=== PATIENT | female | born 1950 | race Caucasian/White ===

== ENCOUNTER → 2019-11-28 11:35 | Outpatient (BNVA) | payer MEDICARE, OTHER, SELFPAY | PROVIDERS: Family Provider Nurse Practitioner Family; PCP Nurse Practitioner Family; Visit Provider Nurse Practitioner Family | DX: E11.9 Type 2 diabetes mellitus without complications (principal); Z79.4 Long term (current) use of insulin; I10 Essential (primary) hypertension; E78.5 Hyperlipidemia, unspecified; M54.5 Low back pain | CPT/HCPCS: 80053; 80061; 83036 ==

== ENCOUNTER → 2020-02-26 10:46 | Outpatient (BNVA) | payer MEDICARE, OTHER, SELFPAY | PROVIDERS: Family Provider Nurse Practitioner Family; PCP Nurse Practitioner Family; Visit Provider Nurse Practitioner Family | DX: Z79.4 Long term (current) use of insulin (principal); E11.9 Type 2 diabetes mellitus without complications; I10 Essential (primary) hypertension; Z79.899 Other long term (current) drug therapy; J32.9 Chronic sinusitis, unspecified | CPT/HCPCS: 80053; 80061; 82043; 83036 ==

== ENCOUNTER 2020-04-24 08:40 | Outpatient (CLI) | payer MEDICARE, OTHER, SELFPAY ==
--- NOTE | 2020-04-24 08:45 | MR_ITS ---
WS: [id number] MRI LUMBAR SPINE NONCONTRAST TECHNIQUE: Sagittal T1, T2 and STIR imaging. Axial T1 and T2 imaging. CLINICAL INFORMATION: S39.012A Strain of muscle, fascia and tendon of lower berny... COMPARISON: None. FINDINGS: Mild lumbar curve. No acute compression. Disc bulging worse L4-5 with endplate degenerative changes. L1-L2: Normal. L2-L3: No significant disc bulging. Mild facet arthropathy. Spinal canal and foramen are patent. L3-L4: Mild disc bulging with slight effacement of ventral thecal sac. Narrowing of the left subartic ular recess. Small left foraminal protrusion with mild left foraminal narrowing. Mild right foraminal narrowing. Mild to moderate facet arthropathy. L4-L5: Broad-based central disc osteophyte protrusion with impingement subarticular recess and jennifer sing L5 nerve roots bilaterally. Moderate central canal stenosis. Moderate facet arthropathy with lig ament flavum hypertrophy. Moderate right and mild left foraminal narrowing. L5-S1: Disc osteophyte complex with endplate ridging. Slight effacement of the ventral thecal sac. Fo ramen are patent. Mild to moderate facet arthropathy. Visualized pelvic bony structures: Normal. Paravertebral soft tissues: Normal. MR/MR lumbar spine wo con* [id number] IMPRESSION: 1. Mild lumbar curve. No acute compression. 2. Disc osteophyte complex L4-L5 with central disc protrusion and moderate yana tral canal stenosis. Impingement traversing L5 nerve roots bilaterally. 3. Moderate right L4-5 foraminal narrowing. 4. Small left foraminal protrusion L3-4 with mild left foraminal narrowing. 5. Mild to moderate facet arthropathy L3-L5.
== END 2020-04-24 08:41 | disposition home or self-care (01) ==
LOC: RADSHAW 08:42
PROVIDERS: PCP Nurse Practitioner Family; Visit Provider Nurse Practitioner Family
DX: S39.012A Strain of muscle, fascia and tendon of lower back, initial encounter (principal); X58.XXXA Exposure to other specified factors, initial encounter; M25.78 Osteophyte, vertebrae; M51.26 Other intervertebral disc displacement, lumbar region; M47.816 Spondylosis without myelopathy or radiculopathy, lumbar region
CPT/HCPCS: 72148

== ENCOUNTER 2020-05-10 08:52 | Outpatient (CLI) | payer MEDICARE, OTHER, SELFPAY ==
--- NOTE | 2020-05-10 09:30 | MM_ITS ---
WS: [id number] BILATERAL SCREENING DIGITAL MAMMOGRAM WITH CAD HISTORY: screen breast COMPARISON: 10/26/2018 and 09/28/2017 Bilateral CC and MLO views submitted. Computer aided detection analyzed. Breast composition: There are scattered areas of fibroglandular density. No suspicious masses, microc alcifications or architectural distortion. Numerous coarse benign round calcifications scattered thro ughout the RIGHT breast. Similar to prior studies. MM/[place] [id number] IMPRESSION: BI-RADS: 2-Benign FOLLOW UP: 1 Year Follow-up
== END 2020-05-10 08:53 | disposition home or self-care (01) ==
LOC: RADSHAW 08:55
PROVIDERS: PCP Nurse Practitioner Family; Visit Provider Nurse Practitioner Family
DX: Z12.31 Encounter for screening mammogram for malignant neoplasm of breast (principal)
CPT/HCPCS: 77067

== ENCOUNTER → 2020-06-24 10:08 | Outpatient (BNVA) | payer MEDICARE, OTHER, SELFPAY | PROVIDERS: PCP Nurse Practitioner Family; Visit Provider Nurse Practitioner Family | DX: L03.90 Cellulitis, unspecified (principal) | CPT/HCPCS: 87070 ==

== ENCOUNTER → 2020-07-01 10:58 | Outpatient (BNVA) | payer MEDICARE, OTHER, SELFPAY | PROVIDERS: PCP Nurse Practitioner Family; Visit Provider Nurse Practitioner Family | DX: E11.9 Type 2 diabetes mellitus without complications (principal); Z79.4 Long term (current) use of insulin; I10 Essential (primary) hypertension; E78.5 Hyperlipidemia, unspecified; L03.90 Cellulitis, unspecified | CPT/HCPCS: 80053; 80061; 83036 ==

== ENCOUNTER → 2020-08-05 15:44 | Outpatient (BNVA) | payer MEDICARE, OTHER, SELFPAY | PROVIDERS: PCP Nurse Practitioner Family; Visit Provider Nurse Practitioner Family | DX: R05 Cough (principal) | CPT/HCPCS: 87635 ==

== ENCOUNTER → 2020-09-16 08:29 | Outpatient (BNVA) | payer MEDICARE, OTHER, SELFPAY | PROVIDERS: PCP Nurse Practitioner Family; Visit Provider Nurse Practitioner Family | DX: R10.2 Pelvic and perineal pain (principal); E11.9 Type 2 diabetes mellitus without complications; Z79.4 Long term (current) use of insulin; I10 Essential (primary) hypertension; J32.9 Chronic sinusitis, unspecified; E78.5 Hyperlipidemia, unspecified | CPT/HCPCS: 80061; 81000; 83036 ==

== ENCOUNTER 2020-10-21 06:20 | Day surgery (SDC) | payer MEDICARE, OTHER, SELFPAY ==
[2020-10-17 12:38] VITALS: BMI 27.1
[2020-10-21 06:50] VITALS: BP 181/80; PULSE 67; RESP 16; TEMP 36.6; O2SAT 100
--- NOTE | 2020-10-21 06:52 | W.PM.OPSUD ---
Surgery/Procedure H&P Update DATE OF PROCEDURE: October 21, 2020 DATE H&P PERFORMED: 10/09/20 H&P UPDATE INFORMATION: I have reviewed H&P completed within last 30 days, I have examined patient prior to procedure and No changes to prior documentation PREOP DIAGNOSIS: Epigastric pain PRIMARY INDICATION FOR PROCEDURE: The same PLANNED PROCEDURE: Operation Date: 10/21/20 07:30 Proposed Procedures p EGD 81008 K21.9(Not Applicable) - Tate Stockton MD
[2020-10-21 07:05] LABS: Glucose Point of Care 125 mg/dL (70-110)
[2020-10-21] MEDS: sodium chloride 0.9% 1,000 ML 30 ML IV (07:05)
--- NOTE | 2020-10-21 07:22 | ANES.PREANE2 ---
Pre-Anesthetic Assessment Pre-Anesthetic Assessment: Height/Weight: Height 1.47 m Weight 58.967 kg Temp Pulse Resp BP Pulse Ox 97.8 F 67 16 181/80 100 10/21/20 06:50 10/21/20 06:50 10/21/20 06:50 10/21/20 06:50 10/21/20 06:50 Preop Diagnosis: Epigastric pain Proposed Procedure: Operation Date: 10/21/20 07:30 Proposed Procedures p EGD 56182 K21.9(Not Applicable) - Tate Stockton MD Was Beta Onur taken within 24 hours: Yes Was Clonidine taken within 24 hours: N/A Last intake: Intake Last Liquid Date 10/20/20 Last Liquid Time 22:00 Last Solid Date 10/20/20 Last Solid Time 19:00 Social: Social History: No alcohol and No tobacco Exam: Pre-Anes Outpt Exam: alert, oriented x 3, clear to auscultation bilaterally and regular rate & rhythm Airway: Submandibular: WNL Cervical ROM: WNL MP: 2 Dentition: Full History/ROS: No significant history except as noted and No significant complaints Pulmonary: Pulmonary: None reported CV/HEM: CV/HEM: CAD and HTN : : None reported Hepatic: Hepatic: None reported GI: GI: GERD Metabolic: Metabolic: DM Musc/skel: Musc/skel: None reported Neuropsych: Neuropsych: None reported Anesthetic Plan: ASA status: 3 Anesthesia: MAC Risk of > 500 ml blood loss (7ml/kg in children): No Meds/Allergies Current Medications: Current Medications Generic Name Dose Route Start Last Admin Trade Name Freq PRN Reason Stop Dose Admin Sodium Chloride 1,000 mls @ 30 ml s/hr 10/21/20 06:30 10/21/20 07:05 Sodium Chloride 0.9% IV 30 mls/hr .Q24H STACI Administration PFSH Anesthesia PFSH: Medical History CAD (coronary artery disease) HTN (hypertension), benign Hyperlipidemia LDL goal <100 Type 2 diabetes mellitus with insulin therapy Type 2 diabetes mellitus with insulin therapy Surgical History H/O: hysterectomy History of appendectomy Family History Father CAD (coronary artery disease) Mother CAD (coronary artery disease) Social History Smoking and tobacco status: never smoked Data Anesthesia Other Labs: Laboratory Results - last 48 hr 10/21/20 07:03 POC Glucose 125 H Cardiac Studies: No Data to Display
[2020-10-21 07:33] VITALS: BP 128/63; PULSE 66; RESP 16; TEMP 36.2; O2SAT 94
[2020-10-21 07:48] VITALS: BP 118/63; PULSE 66; RESP 18; O2SAT 100
--- NOTE | 2020-10-21 17:43 | ANE.PACU2 ---
Inpatient post-anesthesia follow up: Airway intact: Yes Vital signs: Temperature 97.2 F Pulse Rate 66 Respiratory Rate 18 Blood Pressure 118/63 Pulse Oximetry 100 Oxygen Delivery Me thod Room Air Oxygen Flow Rate 2 Fraction of Inspir ed Oxygen Hydration adequate: Yes Nausea and vomiting: No Pain level: 1 Mental status: Baseline
== END 2020-10-21 08:08 | disposition home or self-care (01) ==
PROVIDERS: PCP Nurse Practitioner Family; Visit Provider Surgery
PROC: 0DJ08ZZ Inspection of Upper Intestinal Tract, Via Natural or Artificial Opening Endoscopic (ICD-10-PCS; CPT 43235; principal; 2020-10-21 07:30)
DX: R10.13 Epigastric pain (principal); K21.9 Gastro-esophageal reflux disease without esophagitis; K44.9 Diaphragmatic hernia without obstruction or gangrene; K29.70 Gastritis, unspecified, without bleeding; I25.10 Atherosclerotic heart disease of native coronary artery without angina pectoris; I10 Essential (primary) hypertension; E11.9 Type 2 diabetes mellitus without complications; E78.5 Hyperlipidemia, unspecified; Z79.82 Long term (current) use of aspirin; Z79.84 Long term (current) use of oral hypoglycemic drugs
CPT/HCPCS: 36416; 43239; 82962; 88305; 96360; J7030

== ENCOUNTER 2020-10-28 08:56 | Outpatient (CLI) | payer MEDICARE, OTHER, SELFPAY ==
--- NOTE | 2020-10-28 09:30 | FL_ITS ---
WS: [id number] MODIFIED BARIUM SWALLOW HISTORY: R13.10 - Dysphagia, unspecified FLUOROSCOPY TIME: 2.5 minutes. Modified barium swallow was performed by the speech pathologist. Fluoroscopy was provided with the pa tient in a lateral projection. Multiple food consistencies were provided. Patient swallowed all food consistencies without difficulty. No aspiration or laryngeal penetration. No residual barium after swallowing. Barium tablet swallowed normally. FL/FL barium swallow modifd [id number] IMPRESSION: Normal modified swallowing examination. Please see speech therapist report also for recommendations.
== END 2020-10-28 08:57 | disposition home or self-care (01) ==
PROVIDERS: PCP Nurse Practitioner Family; Visit Provider Surgery
DX: R13.10 Dysphagia, unspecified (principal)
CPT/HCPCS: 74230; 92611

== ENCOUNTER → 2021-01-10 09:13 | Outpatient (BNVA) | payer MEDICARE, SELFPAY | PROVIDERS: PCP Nurse Practitioner Family; Visit Provider Nurse Practitioner Family | DX: E11.9 Type 2 diabetes mellitus without complications (principal); Z79.4 Long term (current) use of insulin | CPT/HCPCS: 80053; 80061; 83036; 85025 ==

== ENCOUNTER → 2021-04-07 08:53 | Outpatient (BNVA) | payer MEDICARE, SELFPAY | PROVIDERS: PCP Nurse Practitioner Family; Visit Provider Nurse Practitioner Family | DX: R30.0 Dysuria (principal) | CPT/HCPCS: 81000; 87086 ==

== ENCOUNTER → 2021-04-17 08:50 | Outpatient (BNVA) | payer MEDICARE, SELFPAY | PROVIDERS: PCP Nurse Practitioner Family; Visit Provider Nurse Practitioner Family | DX: E78.5 Hyperlipidemia, unspecified (principal); E11.9 Type 2 diabetes mellitus without complications; I10 Essential (primary) hypertension; Z79.4 Long term (current) use of insulin | CPT/HCPCS: 80053; 80061; 83036 ==

== ENCOUNTER → 2021-05-09 00:01 | Outpatient (BNVA) | payer MEDICARE, SELFPAY | PROVIDERS: PCP Nurse Practitioner Family; Visit Provider Nurse Practitioner Family | DX: R30.9 Painful micturition, unspecified (principal) | CPT/HCPCS: 81000; 87077; 87086; 87184 ==

== ENCOUNTER → 2021-05-19 09:22 | Outpatient (BNVA) | payer MEDICARE, SELFPAY | PROVIDERS: PCP Nurse Practitioner Family; Visit Provider Nurse Practitioner Family | DX: R39.9 Unspecified symptoms and signs involving the genitourinary system (principal); N39.0 Urinary tract infection, site not specified | CPT/HCPCS: 81000; 87086 ==

== ENCOUNTER → 2021-08-28 09:40 | Outpatient (BNVA) | payer MEDICARE, OTHER, SELFPAY | PROVIDERS: PCP Nurse Practitioner Family; Visit Provider Nurse Practitioner Family | DX: E78.5 Hyperlipidemia, unspecified (principal); E11.9 Type 2 diabetes mellitus without complications; I10 Essential (primary) hypertension; Z79.4 Long term (current) use of insulin; L72.3 Sebaceous cyst | CPT/HCPCS: 80053; 80061; 83036 ==

== ENCOUNTER 2021-10-01 10:22 | Outpatient (CLI) | payer MEDICARE, OTHER, SELFPAY ==
--- NOTE | 2021-10-01 10:30 | XRR_ITS ---
PROCEDURE INFORMATION: Exam: XR Left Ankle Exam date and time: 10/01/2021 10:30 AM Age: 71 years old Clinical indication: Injury or trauma; Fall; Sprain or strain; Left; Injury date: 2 weeks ago; Injury details: Lt ankle pain medial side, twisted ankle slipped on ice felt pop 2 weeksago; Additional info: S99.912a - unspecified injury of left ankle, initial enco. . . TECHNIQUE: Imaging protocol: XR Left ankle. Views: 3 or more views. COMPARISON: No relevant prior studies available. FINDINGS: Bones/joints: No fracture. Moderate to large calcaneal plantar spur. Soft tissues: Anterior as well as lateral soft tissue swelling. Vascular calcifications. XR/XR ankle LT min 3V* [id number] IMPRESSION: Soft tissue swelling.
== END 2021-10-01 10:23 | disposition home or self-care (01) ==
LOC: RAD 10:27
PROVIDERS: PCP Nurse Practitioner Family; Visit Provider Nurse Practitioner Family
DX: S99.912A Unspecified injury of left ankle, initial encounter (principal); W00.0XXA Fall on same level due to ice and snow, initial encounter; M79.89 Other specified soft tissue disorders
CPT/HCPCS: 73610

== ENCOUNTER → 2021-11-11 09:34 | Outpatient (BNVA) | payer MEDICARE, OTHER, SELFPAY | PROVIDERS: PCP Nurse Practitioner Family; Visit Provider Nurse Practitioner Family | DX: N28.9 Disorder of kidney and ureter, unspecified (principal); M67.472 Ganglion, left ankle and foot | CPT/HCPCS: 80048 ==

== ENCOUNTER → 2021-12-24 09:58 | Outpatient (BNVA) | payer MEDICARE, OTHER, SELFPAY | PROVIDERS: PCP Nurse Practitioner Family; Referring Provider Nurse Practitioner Family; Visit Provider Podiatrist Foot & Ankle Surgery | DX: M72.2 Plantar fascial fibromatosis (principal); M79.672 Pain in left foot; M25.572 Pain in left ankle and joints of left foot; M25.472 Effusion, left ankle; M76.72 Peroneal tendinitis, left leg | CPT/HCPCS: 99204 ==

== ENCOUNTER → 2022-01-05 09:34 | Outpatient (BNVA) | payer MEDICARE, OTHER, SELFPAY | PROVIDERS: PCP Nurse Practitioner Family; Referring Provider Nurse Practitioner Family; Visit Provider Specialist | DX: G56.02 Carpal tunnel syndrome, left upper limb (principal) | CPT/HCPCS: 95908; 95910 ==

== ENCOUNTER → 2022-02-04 10:26 | Outpatient (BNVA) | payer MEDICARE, OTHER, SELFPAY | PROVIDERS: PCP Nurse Practitioner Family; Visit Provider Podiatrist Foot & Ankle Surgery | DX: M25.572 Pain in left ankle and joints of left foot (principal); M25.472 Effusion, left ankle; M72.2 Plantar fascial fibromatosis; M76.72 Peroneal tendinitis, left leg; M79.672 Pain in left foot | CPT/HCPCS: 99213 ==

== ENCOUNTER → 2022-02-09 15:07 | Outpatient (BNVA) | payer MEDICARE, OTHER, SELFPAY | PROVIDERS: PCP Nurse Practitioner Family; Visit Provider Nurse Practitioner Family | DX: R30.9 Painful micturition, unspecified (principal); N39.0 Urinary tract infection, site not specified | CPT/HCPCS: 81000; 87077; 87086; 87184 ==

== ENCOUNTER → 2022-02-16 09:27 | Outpatient (BNVA) | payer MEDICARE, OTHER, SELFPAY | PROVIDERS: PCP Nurse Practitioner Family; Visit Provider Nurse Practitioner Family | DX: I10 Essential (primary) hypertension (principal); E11.9 Type 2 diabetes mellitus without complications; Z79.4 Long term (current) use of insulin; N39.0 Urinary tract infection, site not specified; E78.5 Hyperlipidemia, unspecified | CPT/HCPCS: 80053; 80061; 81000; 82043; 83036 ==

== ENCOUNTER → 2022-02-27 08:54 | Outpatient (BNVA) | payer MEDICARE, OTHER, SELFPAY | PROVIDERS: PCP Nurse Practitioner Family; Visit Provider Nurse Practitioner Family | DX: R35.0 Frequency of micturition (principal); R31.9 Hematuria, unspecified; N39.0 Urinary tract infection, site not specified | CPT/HCPCS: 81000; 87077; 87086; 87184 ==

== ENCOUNTER → 2022-03-10 15:54 | Outpatient (BNVA) | payer MEDICARE, OTHER, SELFPAY | PROVIDERS: PCP Nurse Practitioner Family; Visit Provider Nurse Practitioner Family | DX: N39.0 Urinary tract infection, site not specified (principal) | CPT/HCPCS: 87086 ==

== ENCOUNTER → 2022-03-12 07:54 | Outpatient (BNVA) | payer MEDICARE, OTHER, SELFPAY | PROVIDERS: PCP Nurse Practitioner Family; Referring Provider Nurse Practitioner Family; Visit Provider Specialist | DX: M54.12 Radiculopathy, cervical region (principal); G56.03 Carpal tunnel syndrome, bilateral upper limbs | CPT/HCPCS: 95886; 95908; 99202 ==

== ENCOUNTER → 2022-03-18 12:06 | Outpatient (BNVA) | payer MEDICARE, OTHER, SELFPAY | PROVIDERS: PCP Nurse Practitioner Family; Visit Provider Nurse Practitioner Family | DX: R30.0 Dysuria (principal) | CPT/HCPCS: 81000 ==

== ENCOUNTER → 2022-04-09 14:23 | Outpatient (BNVA) | payer MEDICARE, OTHER, SELFPAY | PROVIDERS: PCP Nurse Practitioner Family; Visit Provider Internal Medicine Cardiovascular Disease | DX: R06.02 Shortness of breath (principal); I10 Essential (primary) hypertension; I25.10 Atherosclerotic heart disease of native coronary artery without angina pectoris; E78.5 Hyperlipidemia, unspecified; E11.9 Type 2 diabetes mellitus without complications; Z79.84 Long term (current) use of oral hypoglycemic drugs; Z79.4 Long term (current) use of insulin; K21.9 Gastro-esophageal reflux disease without esophagitis | CPT/HCPCS: 99214 ==

== ENCOUNTER 2022-04-14 09:57 | Outpatient (CLI) | payer MEDICARE, OTHER, SELFPAY ==
--- NOTE | 2022-04-14 10:15 | MR_ITS ---
WS: [id number] MRI CERVICAL SPINE NONCONTRAST TECHNIQUE: Sagittal T1, T2 and STIR imaging. Axial T2, gradient, and fiesta imaging. Images degraded by motion artifact. Patient claustrophobic. CLINICAL INFORMATION: M54.12 - Radiculopathy, cervical region COMPARISON: None. FINDINGS: Images degraded by motion artifact. Straightening of the normal cervical lordosis. Mild cervical curve. Slight anterolisthesis C6 on C7 m easuring 4 mm. Slight retrolisthesis C4 on C5. Disc space narrowing worse at C4-C5 C5-C6 and C6-C7. C2-C3: Mild disc osteophytic ridging. Mild LEFT bony foraminal narrowing. Mild facet arthropathy. Spi nal canal is patent. C3-C4: Mild disc osteophytic ridging. Mild LEFT and no significant RIGHT foraminal narrowing. Mild fa cet arthropathy. Spinal canal is patent. C4-C5: Disc osteophyte complex with endplate ridging. Mild central canal stenosis. Slight retrolisthe sis. Moderate RIGHT greater than LEFT bony foraminal narrowing. Mild central arthropathy. C5-C6: Disc osteophyte complex with endplate ridging. Shallow central protrusion. Mild central canal stenosis. Moderate LEFT and mild RIGHT bony foraminal narrowing. Moderate facet arthropathy. C6-C7: Grade 1 anterolisthesis. Central disc bulging with moderate central canal stenosis. Indentatio n on cervical cord. Severe LEFT and mild RIGHT bony foraminal narrowing. Mild facet arthropathy. C7-T1: No significant disc bulging. Spinal canal and foramen are patent. Visualized brain stem structures: Normal. Prevertebral soft tissues: Normal. MR/MR cervical spin wo con* [id number] IMPRESSION: Images degraded by motion artifact 1. Moderate central canal stenosis C6-C7 with indentation on cervical cord due to grade 1 anterolisthesis in combination with disc bulging. 2. Mild central canal stenosis C4-C5. 3. Severe LEFT bony foraminal narrowing LEFT C6-C7. 4. Moderate facet arthropathy C4-C6. 5. Mild to moderate bony foraminal narrowing worse at RIGHT C4-C5 and LEFT C5- C6
== END 2022-04-14 09:58 | disposition home or self-care (01) ==
LOC: RAD 09:58
PROVIDERS: PCP Nurse Practitioner Family; Visit Provider Specialist
DX: M54.12 Radiculopathy, cervical region (principal); M48.02 Spinal stenosis, cervical region; M47.812 Spondylosis without myelopathy or radiculopathy, cervical region
CPT/HCPCS: 72141

== ENCOUNTER → 2022-05-05 12:58 | Outpatient (BNVA) | payer MEDICARE, OTHER, SELFPAY | PROVIDERS: PCP Nurse Practitioner Family; Referring Provider Specialist; Visit Provider Physician Assistant | DX: M54.12 Radiculopathy, cervical region (principal); M43.12 Spondylolisthesis, cervical region | CPT/HCPCS: 72050; 99204; 99205 ==

== ENCOUNTER → 2022-05-11 11:23 | Outpatient (BNVA) | payer MEDICARE, OTHER, SELFPAY | PROVIDERS: PCP Nurse Practitioner Family; Visit Provider Nurse Practitioner Family | DX: R39.9 Unspecified symptoms and signs involving the genitourinary system (principal); R31.9 Hematuria, unspecified; N39.0 Urinary tract infection, site not specified | CPT/HCPCS: 81000; 87077; 87086; 87184 ==

== ENCOUNTER 2022-05-18 14:24 | Outpatient (CLI) | payer MEDICARE, OTHER, SELFPAY ==
--- NOTE | 2022-05-18 15:15 | MR_ITS ---
WS: [id number] MRI LUMBAR SPINE NONCONTRAST HISTORY: Low back pain. Tingling and weakness. COMPARISON: 04/24/2020 TECHNIQUE: Sagittal and axial multisequence imaging is submitted. Advanced degenerative spondylitic changes of the cervical, thoracic and lumbar spines with curvature. Small amount of reactive marrow edema and fatty replacement on the endplates of L4 and L5. Severe di sc space narrowing at L4-5. No acute fractures. Posterior alignment is normal. Disc spaces are narrowed and desiccated, most significant at L4-5. Conus terminates normally at L1-2 disc level. T11-12: Mild diffuse disc bulging. Mild LEFT foraminal narrowing. L1-L2: No stenosis. L2-L3: Mild bilateral facet joint arthritis. No significant stenosis. L3-L4: Marked annular disc bulging with facet and ligamentum flavum arthritis. Disc bulge is asymmetr ic to the LEFT but the small disc protrusion previously described is not as apparent. Mild encroachme nt into the thecal sac and subarticular recesses. Mild bilateral foraminal stenosis due to disc disea se. L4-L5: Marked annular disc bulging and osteophytic ridging. Ligamentum flavum and advanced facet join t arthritis. Broad-based central disc protrusion and osteophyte encroachment is not quite as signific ant as on the prior study. There is still moderate central with bilateral subarticular recess and for aminal stenosis. Slightly less stenosis in the LEFT foramen as before. L5-S1: Mild annular disc bulging and osteophytic ridging. Very small central disc protrusion. Mild fa cet arthritis and fluid in the facet joints. Paravertebral soft tissues are negative. MR/MR lumbar spine wo con* [id number] IMPRESSION: 1. Continued moderate central, bilateral subarticular recess stenosis and fora james stenosis at L4-5. Slightly greater foraminal stenosis on the RIGHT. Simil ar in appearance to the prior study with slightly less central effacement of CS F. 2. Mild central, subarticular recess and foraminal stenosis at L3-4. Previousl y described small LEFT foraminal disc protrusion is not as apparent as on the p rior study. There is still foraminal narrowing. 3. Mild to moderate facet joint arthritis most significant from L3-4 through L 5-S1.
== END 2022-05-18 14:25 | disposition home or self-care (01) ==
LOC: RAD 14:25
PROVIDERS: PCP Nurse Practitioner Family; Visit Provider Nurse Practitioner Family
DX: M51.36 Other intervertebral disc degeneration, lumbar region (principal); M48.061 Spinal stenosis, lumbar region without neurogenic claudication; M47.816 Spondylosis without myelopathy or radiculopathy, lumbar region; N28.9 Disorder of kidney and ureter, unspecified; N39.0 Urinary tract infection, site not specified
CPT/HCPCS: 72148; 87086

== ENCOUNTER 2022-05-19 11:01 | Outpatient (CLI) | payer MEDICARE, OTHER, SELFPAY | END 2022-05-19 11:02 | disposition home or self-care (01) | LOC: RT 05-27 11:07 | PROVIDERS: PCP Nurse Practitioner Family; Visit Provider Orthopaedic Surgery | DX: Z01.89 Encounter for other specified special examinations (principal); R94.31 Abnormal electrocardiogram [ECG] [EKG] | CPT/HCPCS: 93005 ==

== ENCOUNTER → 2022-05-20 09:05 | Outpatient (BNVA) | payer MEDICARE, OTHER, SELFPAY | PROVIDERS: PCP Nurse Practitioner Family; Visit Provider Nurse Practitioner Family | DX: E11.9 Type 2 diabetes mellitus without complications (principal); Z79.4 Long term (current) use of insulin; I10 Essential (primary) hypertension; M51.36 Other intervertebral disc degeneration, lumbar region; M48.02 Spinal stenosis, cervical region | CPT/HCPCS: 80061; 83036 ==

== ENCOUNTER 2022-05-22 06:30 | Outpatient (CLI) | payer MEDICARE, OTHER, SELFPAY ==
--- NOTE | 2022-05-22 | ECG_ITS ---
[facility] Test Date: 2022-05-22 Pat Name: Jaylene Ly Department: Room: Gender: Female Pre Assembly Wirer: : 1950 Requested By: Gladys Corona Order Number: [id number] Sussy MD: Gladys Corona M.D. Interpretive Statements NAME OF STUDY: LEXISCAN SESTAMIBI STRESS TEST INDICATION: Exertional shortness of breath PROCEDURE: At the baseline, the blood pressure was 188/101 mm Hg with a heart rate of 88 bpm. The electrocardiogram showed sinus rhythm, normal axis.ST depression and T wave inversion in lead I and aVL. The patient exercised for a little over 3 minutes on a standard Eric protocol and did not reach target HR. The Lexiscan was infused over a period of 20 seconds. A total of 0.4 milligrams of Lexiscan was infused. The stress phase was continued for a total of 5 minutes. Heart rate at the end of the stress phase was 74 bpm with a blood pressure of 108/62 mm Hg. The EKG at the peak exercise revealed 1-1 and 1/2 mm horizontal to upsloping ST depresion in infero-lateral leads. Lexiscan infusion revealed 1/[address] depression and T wave changes in lateral leads. Sestamibi was injected 20 seconds after the Lexiscan infusion. Blood pressure at the end of the recovery phase was 117/56 mm Hg with a heart rate of 90 beats per minute. CONCLUSION: 1. Positive EKG response to submaximal stress and equivocal EKG changes with the LexiScan infusion. 2. No LexiScan induced chest pain or cardiac arrhythmia. 3. Normal blood pressure and heart rate response. 4. Sestamibi/sestamibi perfusion scan pending; see separate report. Electronically Signed On 06-01-2022 20:36:00 GEOTECHNICIAN by Gladys Corona M.D. [id number]
[2022-05-22 07:04] VITALS: BMI 29.2
--- NOTE | 2022-05-22 07:17 | NMCV_ITS ---
[facility] perf SPECT r/s* [id number] Jaylene Ly Age: 72 Gender: F : 1950 Exam Date: 05/22/2022 07:59 Ordering Phys: Gladys Corona MD ([email or web address]) Technologist: URMILA Smith Exam Location: [facility] Indications: CHEST PAIN STRESS TEST Please see separate stress test report in [facility] for full findings IMAGE PROTOCOL Rest/Stress 1 Lexiscan Day Radiopharmaceutical Dose (mCi) Administration Site Administered by Rest: Tc-99m 10.8 IV URMILA King Sestamibi Stress:Tc-99m 32.9 IV URMILA Kign Sestamibi Rest: 22-May-2022 60 Discovery 630 Stress: 22-May-2022 30 Discovery 630 0.4mg Lexiscan. Images obtained in supine and prone position. SPECT RESULTS Technical Quality: Excellent Raw Data Analysis: Normal Image Corrections: No attenuation or motion correction applied Summed Stress Score: 8 Summed Rest Score: 3 Summed Difference Score: 5 PERFUSION FINDINGS Small sized reversible perfusion abnormality of basal to mid inferolateral lawrence with reversibiity noted in inferolateral lawrence on stress images. FUNCTIONAL RESULTS (calculated via Gated SPECT) Stress Image LV EF (%): 86 Stress EDV (mL):66 TID: 0.85 Stress ESV (mL):9 FUNCTIONAL FINDINGS: The left ventricle is normal in size. Transient Ischemia Dilatation of 0.85. The left ventricular ejection fraction is normal with a value of 86%. There is hyperdynamic left ventricular wall thickening. IMPRESSIONS 1. Small sized partially reversible perfusion abnormality of basal to mid inferolateral and apical lateral lawrence. 2. This is suggestive of old myocardial infarction with mild jie-infarct ischemia. 3. Overall left ventricular systolic function is normal without regional wall motion abnormalities, LVEF=86%. 4. EKG portion of the study will be reported separately. Gladys Corona MD (Electronically Signed) Final Date: 22 May 2022 15:54 S
[2022-05-22] MEDS: ondansetron 2 mg/ML SDV 2 mL 4 MG IVP (09:10)
[2022-05-22] MEDS: regadenoson 0.4 Mg/5 ml Syringe IVP (09:10)
[2022-05-22 09:23] VITALS: BP 117/56; PULSE 89
--- NOTE | 2022-05-22 09:24 | PC.NURSE ---
pt not able to complete exercise mibi. dr shrestha in dept and looked at ekg. asked that we proceed with shirin and run both test concurrently. lexiscan injected at the 21 min exercise time. pt then ran through time and recovered.
== END 2022-05-22 06:31 | disposition home or self-care (01) ==
LOC: CDL 06:33
PROVIDERS: PCP Nurse Practitioner Family; Visit Provider Internal Medicine Cardiovascular Disease
DX: R07.9 Chest pain, unspecified (principal); R93.1 Abnormal findings on diagnostic imaging of heart and coronary circulation
CPT/HCPCS: 78452; 93017; A9500; J2405; J2785

== ENCOUNTER 2022-05-25 14:24 | Inpatient (IN) | payer MEDICARE, OTHER, SELFPAY ==
[2022-05-19 09:04] VITALS: BMI 29.2
--- NOTE | 2022-05-19 09:19 | ECG_ITS ---
[facility] Test Date: 2022-05-19 Pat Name: Jaylene Ly Department: Room: Gender: Female Agriculture Technician: : 1950 Requested By: Niurka Chandler Order Number: [id number] Sussy MD: Cristo Mcneil M.D. Measurements Intervals Gaylord Rate: 60 P: 56 MO: 185 QRS: 9 QRSD: 89 T: 109 QT: 437 QTc: 439 Interpretive Statements SINUS RHYTHM ST DEVIATION AND MODERATE T-WAVE ABNORMALITY, CONSIDER LATERAL ISCHEMIA [-0.1+ mV T-WAVE IN I/aVL/V5/V6] No previous ECG available for comparison Electronically Signed On 05-19-2022 21:53:09 CDT by Cristo Mcneil M.D. [id number]
[2022-05-19 09:35] LABS: Basophils % 0.3 %; Eosinophils # 0.1 10^3/uL (0.0-0.8); Eosinophils % 1.3 %; Hematocrit 37.1 % (37.0-47.0); Hemoglobin 11.6 g/dL (11.5-15.3); Lymphocytes # 1.8 10^3/uL (0.8-4.8); Lymphocytes % 18.9 %; Mean Corpuscular HGB Conc 31.3 g/dL (30.0-36.0); Mean Corpuscular Volume 83.2 fl (81-99); Mean Platelet Volume 10.3 fL (7.4-10.4); Monocytes # 0.7 10^3/uL (0.2-0.9); Monocytes % 6.8 %; Neutrophils # 6.87 10^3/uL (1.8-7.7); Neutrophils % 72.4 %; Nucleated Red Blood Cells % 0 %; Platelet Count 319 10^3/cmm (130-400); Red Blood Count 4.46 10^6/uL (4.1-5.3); Red Cell Distribution Width 15.4 % (12.1-15.1); White Blood Count 9.5 10^3/uL (4.0-10.0)
--- NOTE | 2022-05-19 09:54 | PM.MISC ---
Miscellaneous Note Note: Patient presented for pre-op for surgery on May 25. Review of chart (Dr. Corona 04/09) indicates patient is to have a stress test, but she hasn't scheduled the appointment yet. Would require stress test to be completed and interpreted before proceeding with elective surgery. Patient informed.
--- NOTE | 2022-05-23 07:42 | PM.MISC ---
Miscellaneous Note Note: Spoke with Dr. Corona regarding unread stress test from 05/22. States patient is good to proceed with surgery. nt. Per henrietta stress test has been interpreted, but the results just haven't crossed over yet. There were some abnormalities on test, but it would be treated with medical management
[2022-05-25] VITALS (22 sets, daily range): BP systolic 119–207; BP diastolic 66–113; PULSE 67–81; RESP 13–25; TEMP 36.2–38; O2SAT 94–100; BMI 31.8
--- NOTE | 2022-05-25 | SCC_ITS ---
Procedure done: 1. Anterior diskectomy C5/6 2. Anterior discectomy C6/7 3. Corpectomy C6 greater than 50% 4. Corpectomy cage from C5 to C7 5. Instrumentation with anterior plate from C5-C7 6. Use of allograft 7. C2 to T2 posterior instrumentation 8. C2 to T2 posterior fusion 9. C4/5 lamincetomy with partial facetectomies 10. C5/6 laminectomies with partial facetetomies 11. C6/7 laminectomies with partial facetectomies 12 C7/T1 laminectomy with partial facetectomies 13. Use of computer/ stereotactic navigation for the spine 14 Use of allograft posterior 15 use of autograft from the same incision posterior 4 seconds of fluoroscopic guidance, for a cumulative dose of 7 mGy, was provided to Dr. Page by the radiology department. C-arm images of the cervical spine were saved for the patient's permanent record. [facility]
--- NOTE | 2022-05-25 | XR_ITS ---
WS: [id number] Cervical spine, C-arm fluoroscopy views, 05/25/2022 [facility] Comparison: Cervical spine, 05/05/2022. Findings: Dr. Page performed an anterior cervical thoracic disc fusion at the C6-T2 level. There is a posterior cervical thoracic fusion with bilateral pedicle screws from C2 through approximately T3. There are connecting rods. XR/XR cervical spine 3V* [id number] Impression: Anterior and posterior cervical thoracic effusions.
[2022-05-25 07:43] LABS: Glucose Point of Care 124 mg/dL (70-110)
[2022-05-25] MEDS: sodium chloride 0.9% 1,000 ML 30 ML IV (08:00)
--- NOTE | 2022-05-25 08:23 | W.PM.OPSUD ---
Surgery/Procedure H&P Update DATE OF PROCEDURE: May 25, 2022 DATE H&P PERFORMED: 05/05/22 H&P UPDATE INFORMATION: I have reviewed H&P completed within last 30 days, I have examined patient prior to procedure and No changes to prior documentation PREOP DIAGNOSIS: Cervical myelopathy with radiculopathy PRIMARY INDICATION FOR PROCEDURE: HBA1c was 8.5 I did discuss this with her and how she has a higher rate of infection. I told her to monitor her Blood sugars and try to keep them below 110 PLANNED PROCEDURE: Operation Date: 05/25/22 08:30 Proposed Procedures p Anterior Cervical Discectomy & Fusion C4/5 5/6 6/7 08498/41032H0/44286D1/63876/16080/96228/76881/63493I2 MOD59/(Not Applicable) - Yuri Page DO s Cervical Decompression C4-C7 76432/43253F4/97307/58198 G95.9/M54.12/M43.12(Not Applicable) - Yuri Page DO
[2022-05-25 08:25] LABS: Anion Gap 15.2 (5-19); Blood Urea Nitrogen 19 mg/dL (8-23); Calcium 9.8 mg/dL (8.5-10.5); Carbon Dioxide 25 mmol/L (22-29); Chloride 104 mmol/L (98-107); Glomerular Filtration Rate 44.4 mL/min (90-130); Glucose 110 mg/dL (65-115); Osmolality Calculated 293 mOsm/kg (285-295); Potassium 4.2 mmol/L (3.5-5.1); Sodium 140 mmol/L (136-145)
--- NOTE | 2022-05-25 08:52 | ANES.PREANE2 ---
Pre-Anesthetic Assessment Height/Weight: Height 1.47 m Weight 63.503 kg Temp Pulse Resp BP Pulse Ox O2 Del Method 98 F 67 18 188/77 100 05/25/22 07:25 05/25/22 07:25 05/25/22 07:25 05/25/22 07:47 05/25/22 07:25 05/25/22 07:25 Preop Diagnosis: Cervical myelopathy with radiculopathy Operation Date: 05/25/22 08:30 Proposed Procedures p Anterior Cervical Discectomy & Fusion C4/5 5/6 6/7 36332/22304K7/63461D6/19835/16766/60475/20824/18231O7 MOD59/(Not Applicable) - Yuri Page DO s Cervical Decompression C4-C7 60168/40481V4/94020/94140 G95.9/M54.12/M43.12(Not Applicable) - Yuri Page DO Familial anesthetic complications: none Was Beta Onur taken within 24 hours: Yes Was Clonidine taken within 24 hours: N/A Last intake: Intake Last Liquid Date 05/24/22 Last Liquid Time 22:00 Last Solid Date 05/24/22 Last Solid Time 22:00 Social No alcohol and No tobacco Exam alert, oriented x 3, clear to auscultation bilaterally and regular rate & rhythm Airway Submandibular: within normal limits Cervical ROM: within normal limits Mallampati: Class II Dentition: chipped CV/HEM Coronary Artery Disease (stents) and Hypertension GI Gastroesophageal Reflux Disease Metabolic Diabetes Mellitus Musc/skel Lower Back Pain and Osteoarthritis/DJD Anesthetic Plan ASA status: 3 Anesthesia: General Medications/Allergies Home Medications Medication Instructions Recorded Confirmed Last Taken Type aspirin 81 mg tablet,delayed 81 mg PO QDAY 08/17/19 05/25/22 05/23/22 History release metformin 1,000 mg tablet 1,000 mg PO DAILY #90 tabs 08/28/21 05/25/22 05/24/22 Rx insulin glargine 100 unit/mL (3 30 unit (0.3 mL) SUBCUT QPM #15 mL 02/18/22 05/25/22 05/24/22 Rx mL) subcutaneous pen (Lantus Solostar U-100 Insulin) calcium carbonate 200 mg calcium 200 mg PO DAILY PRN Acid Reflux 04/09/22 05/22/22 Unknown History (500 mg) chewable tablet (Tums) loperamide 2 mg capsule (Imodium 2 mg PO Q6H PRN Diarrhea 04/09/22 05/25/22 05/22/22 History A-D) metoprolol tartrate 25 mg tablet 12.5 mg PO BID 04/09/22 05/25/22 05/25/22 History multivitamin 1 tab PO DAILY 04/09/22 05/25/22 05/24/22 History blood sugar diagnostic (FreeStyle #100 strips 04/21/22 05/22/22 Unknown Rx Lite Strips) ezetimibe 10 mg tablet (Zetia) 10 mg PO DAILY 05/19/22 05/25/22 05/24/22 History fluoxetine 10 mg capsule (Prozac) 10 mg PO DAILY 05/19/22 05/25/22 05/23/22 History lisinopril 20 mg tablet 20 mg PO DAILY 05/19/22 05/25/22 05/24/22 History pantoprazole 40 mg tablet,delayed 40 mg PO DAILY 05/19/22 05/25/22 05/24/22 History release amoxicillin 500 mg capsule 500 mg PO Q8H 10 days #30 caps 05/20/22 05/22/22 05/24/22 Rx glipizide 10 mg tablet, extended 10 mg PO DAILY #90 tabs 05/22/22 05/25/22 05/23/22 Rx release 24 hr Bone Growth Stimulator E0748 #1 ea 05/25/22 Unknown Rx Allergies Allergy/AdvReac Type Severity Reaction Status Date / Time atorvastatin [From Lipitor] Allergy Unknown Verified 05/22/22 13:43 codeine Allergy Unknown Verified 05/22/22 13:43 sulfamethoxazole Allergy Unknown Verified 05/22/22 13:43 [From Bactrim] trimethoprim [From Bactrim] Allergy Unknown Verified 05/22/22 13:43 Current Medications Generic Name Dose Route Start Last Admin Trade Name Freq PRN Reason Stop Dose Admin Sodium Chloride 1,000 mls @ 30 mls/hr 05/25/22 07:15 05/25/22 08:00 Sodium Chloride 0.9% IV 05/26/22 07:14 30 mls/hr .Q24H STACI Administration PFSH Anesthesia Medical History CAD (coronary artery disease) GERD (gastroesophageal reflux disease) Hiatal hernia HTN (hypertension), benign Hyperlipidemia LDL goal <100 Type 2 diabetes mellitus with insulin therapy Type 2 diabetes mellitus with insulin therapy Surgical History H/O: hysterectomy History of appendectomy Family History Father CAD (coronary artery disease) Mother CAD (coronary artery disease) Social History Smoking and tobacco status: never smoked Alcohol intake: never History of recent travel: No Data Anesthesia : 05/19/22 09:20 05/25/22 07:42 BMP 05/25/22 07:42 Sodium 140 Potassium 4.2 Chloride 104 Carbon Dioxide 25 BUN 19 Creatinine 1.2 H Glucose 110 Calcium 9.8 Cardiac Studies: Sestamibi Stress Test (Cardiology) 05/22/22
[2022-05-25] MEDS: ceFAZolin 2,000 MG in sodium chloride 0.9% (plus) 50 ML 100 MG IV ×3 (09:22→22:42)
--- NOTE | 2022-05-25 09:59 | SUR.OPER ---
called and notified him of surgical start.
--- NOTE | 2022-05-25 11:09 | SUR.OPER ---
called and notified him of surgical progress.
--- NOTE | 2022-05-25 12:46 | SUR.OPER ---
called and notified him of surgical progress.
[2022-05-25] MEDS: vancomycin 1,000 MG SDV 1000 MG XX (14:13)
--- NOTE | 2022-05-25 14:50 | XRR_ITS ---
PROCEDURE INFORMATION: Exam: XR Cervical Spine Exam date and time: 05/25/2022 4:27 PM Age: 72 years old Clinical indication: Device placement; Prior surgery; Surgery date: Post-operative (0-2 days); Patient HX: Post op fusion, ap/lat requested by physician. limited HX due to PT condition; Additional info: Ap/lat post op fusion TECHNIQUE: Imaging protocol: Radiologic exam of the cervical spine. Views: 2 or 3 views. COMPARISON: CR XR cervical spine 4-5V [id number] 05/05/2022 1:09 PM FINDINGS: Bones/joints: Anterior cervical discectomy and fusion as well as posterior fusion surgical hardware in place throughout the spine. Soft tissues: Unremarkable. XR/XR cervical spine 3V* [id number] IMPRESSION: Anterior cervical discectomy and fusion as well as posterior fusion surgical hardware in place throughout the spine.
--- NOTE | 2022-05-25 15:01 | P.OP_ITS ---
Operative Report Date of procedure: May 25, 2022 Pre-op diagnosis: Preop Diagnosis Cervical myelopathy with radiculopathy Post-op diagnosis: same Procedure done: 1. Anterior diskectomy C5/6 2. Anterior discectomy C6/7 3. Corpectomy C6 greater than 50% 4. Corpectomy cage from C5 to C7 5. Instrumentation with anterior plate from C5-C7 6. Use of allograft 7. C2 to T2 posterior instrumentation 8. C2 to T2 posterior fusion 9. C4/5 lamincetomy with partial facetectomies 10. C5/6 laminectomies with partial facetetomies 11. C6/7 laminectomies with partial facetectomies 12 C7/T1 laminectomy with partial facetectomies 13. Use of computer/ stereotactic navigation for the spine 14 Use of allograft posterior 15 use of autograft from the same incision posterior Surgeon: Yuri Page Respiratory Therapy Technician: Pastor Duran Respiratory Therapy Technician: The surgical coder, Pastor Duran, PAC was needed for his expertise under the microscope. He was important and necessary throughout the procedure to complete in a safe and timely manner. He assisted with patient positioning prepping and draping tissue retraction suctioning of the operative field protection of the dural sac and tissue closure Estimated blood loss (mL): 300 Procedure: 1. Anterior diskectomy C5/6 2. Anterior discectomy C6/7 3. Corpectomy C6 greater than 50% 4. Corpectomy cage from C5 to C7 5. Instrumentation with anterior plate from C5-C7 6. Use of allograft 7. C2 to T2 posterior instrumentation 8. C2 to T2 posterior fusion 9. C4/5 lamincetomy with partial facetectomies 10. C5/6 laminectomies with partial facetetomies 11. C6/7 laminectomies with partial facetectomies 12 C7/T1 laminectomy with partial facetectomies 13. Use of computer/ stereotactic navigation for the spine 14 Use of allograft posterior 15 use of autograft from the same incision posterior 16. Reduction of C6/7 subluxation Patient was brought to the operative suite after undergoing anesthesia was placed in the supine position. Neuro monitoring was used throughout the entire case no evidence of any breaches. Once patient was positioned in all areas impingement were well-padded patient was prepped and draped normal sterile fashion. Skin incision was made over the C6 level. The platysma's was identified. The skin was undermined then the platysma's was split the platysma's was undermined as well. Blunt dissection was made down to the anterior cervical spine. The level was confirmed using spinal needle. Once the C5-C6 and C7 vertebral bodies were identified a distraction pin was placed into the C5 vertebral body. And another distraction pin was placed into the C6-7 vertebral body. Distraction was performed retractors were inserted. And the microscope was brought in. Attention was first brought to doing the C5-6 discectomy. This was done using high-speed bur curved curettes and Kerrison rongeurs. Once the disc was removed at C5-6. Attention was then brought to removing disc at C6-7. This again was done using high-speed bur curved curettes and Kerrison rongeurs. Next attention was brought to performing the corpectomy. A high-speed bur was then used to drill down the bone to the posterior longitudinal ligament. This was done to take out the entire vertebral body. Curved curette was then used to undermine the posterior longitudinal ligament at the level of the C7 vertebral body. Superiorly. And then the Kerrison rongeur was then used to take down the ligament from C5-C7. More distraction was performed. After the ligament anterior and posterior taken down the fracture was reduced using the distraction pins. There is completely expose from C5-C7 remains well felt to be open at C5- 6 C6-7 and C7-T1. This is bilateral. Was brought to placing the cage size 20 [place] cage was placed once the cage was placed prior to that it was packed with bone graft. This was allograft ostial amp bone graft. Then a plate was placed on the C5-C7 level. 2 screws were placed in C5 and 2 screws were placed into C7. AP lateral fluoroscopy ensure there is appropriate position. Patient wound is then irrigated. Deep drain is placed. And wound is closed in layered fashion starting on the platysma's using 2-0 Vicryl and skin with 2-0 Vicryl Monocryl suture. Sterile dressings were applied patient was then flipped into the prone position using the Jefe table flipping mechanism. Patient was then repositioned in the prone position. Arms were tucked all areas impingement well-padded. Patient's bone part of the hair was shaved up to the inion. And patient was then prepped and draped in the normal sterile fashion. Skin incision was made in the midline from C2 down to T2. Subperiosteal dissection was made after going through the cervical fascia. Deep retractors were placed. And then attention was brought to attaching the fiducial for computer stereotactic navigation for placing the screws. The spinous process clamp is attached. The fiducial was then attached. Then the C-arm was brought in to rotate around the patient. This allowed for the information to be loaded into the computer in order placement of the screws. Next attention was brought to placing the screws. This was first brought to placing the pedicle screws. High-speed bur was used to start the starting point. And then the awl was then used to identify the T1 and T2 pedicle screws bilaterally. The pedicle feeler was then brought in. And then the appropriate sized pedicle screws were placed at T1 bilaterally and T2 bilaterally. Next attention was brought to placing the lateral mass screws. High-speed bur was used to drill the starting points. Then the computer navigated drill was used. Followed by the screws using the computer navigation. This was all size 14 screws. These were placed at C3-C4-C5 and C6 bilaterally. Next attention was brought to placing screws at C2. These were pars screws. The high-speed bur was used. Followed by finding the angle of the pars. And then the drill was then used. These were 18 mm screws. Again computer navigation was used to place the screws. The C-arm also showed that there was reduction of the subluxation at C6-7 which was 1 of the reasons for doing the surgery. Next attention was brought to place the rods. Rods were attached to C2 down to T2. Reduction caps were placed on top of the rods bilaterally lock him into position. Next tension was brought to performing the laminectomies and partial facetectomies. A high-speed bur was used to perform the laminectomy and medial aspect of partial facetectomy at C7 the lamina was cut at C7 bilaterally. And then medial aspect of the facet joints at C7-T1 were taken down using the Kerrison rongeur. The remaining laminectomy was taken down of C7 The lamina of C6 was taken down bilaterally. And then the medial aspect of facet joints at C6-C7 were taken down medially. The lamina of C5 was taken down with a high-speed bur and Kerrison rongeur bilaterally. And then the medial aspect of facet joint C5-6 was taken down using Kerrison rongeur. The lamina of C4 was taken down bilaterally with a high-speed bur and Kerrison rongeur and then the medial aspect of the C4 and C5 facet was taken down bilaterally. The ligamentum flavum of between C7 and T1 was taken down with a #3 Kerrison. Then a rongeur was used to elevate up the C7 C6 C5 and C4 lamina Kerrison rongeur and curettes were used to take down the remaining ligamentum that was attached and then the entire lamina was at each level were taken down and used for bone graft. The medial aspect of the facet joints were checked with a Kerrison rongeur and curettes to ensure that the nerves are completely decompressed. The dura was in good repair. And then the lateral gutters were decorticated with a high-speed bur and the autograft and allograft were packed into the lateral gutters. For fusion. And then the wounds were closed in a layered fashion with 0 Vicryl 2-0 Vicryl and Monocryl suture. Sterile dressings were applied and patient was transferred to the PACU in stable condition.
--- NOTE | 2022-05-25 15:02 | SUR.PHASEI ---
1451 PT TO PACU 5 PT SLEEPS WITH ORAL AIRWAY IN PLACE, GOOD RESP EFFORT NOTED SATS 100% ON 8L MASK, MONITOR SR WITH NO ECTOPY NOTED. C COLLAR IN PLACE DRESSING TO ANTERIOR NECK WITH MOD RED DRAINAGE MARKED ANDTERIOR DRAIN HEMAVAC COMPRESSED WITH GOOD SUCTION ATTAINED WITH SMALL AMT RED DRAINAGE TO TUBE AND DRAIN. POSTERIOR DRESSING D/I WITH HEMAVAC DRAIN WELL COMPRESSED QWITH GOOD SUCTION ATTAINED SMALL AMT RED DRAINAGE TO TUBE AND DRAIN ARTERIAL LINE TO LT RADIAL ARTERY FLUSHES EASILY DISTAL HAND PINK WARM WITH FAST CAP REFILL NOTED TO LT HAND FINGERS, IV TO RT WRIST # 20 WITH NS 150ML AT KVO RATE PER GRAVITY , ID BRACELET TO LT WRIST , PT ID'D WITH 2 IDENTIFIERS, BILAT SCDS ON AND WORKING, CABA TO DD WITH STATLOCK TO RT INNER THIGH WITH CLEAR YELLOW URINE TO TUBING AND BAG. 1512 PT OPENS EYES BUT DOES NOT OPEN MOUTH TO REMOVE ORAL AIRWAY PT ON RA TRIAL, GOOD RESP EFFORT NOTED. DRESSING UNCHANGED.
--- NOTE | 2022-05-25 15:29 | SUR.PHASEI ---
1515 PT ART LINE TO LT WRIST PULLED , CATHETER INTACT, PRESSURE HELD X 10 MINUTES AND PRESSURE DRESSING TO SITE, DISTAL FINGERS PINK WITH CAP REFILL LESS THAN 3 SECONDS, MONITOR SR WITH NO ECTOPY, X RAY HERE, PT ROLLED AND POSTERIOR NECK DRESSING D/I AND ANTERIOR NECK DRESSING UNCHANGED DRAINS X 2 COMPRESSED WITH ONLY SMALL AMT RED DRAINAGE NOTED TO TUBING AND DRAINS, GOOD SUCTION MAINTAINED TO BOTH DRAINS,. LT WRIST SITE D/I . IV PATENT AT KVO RATE. PT MORE ALERT ORIENTED TO SELF AND RECENT SURGURY ONLY. 1545 PT TAKING OCC ICE CHIPS WITH OUT DIFFICULTY, PT MOVES ALL EXREMITIES TO COMMAND, BILAT ARMS AND LEGS EQUALLY STRONG, WARM BLANKET TO PT PER PT VERBAL REQUEST, PT KNOWS SHE IS IN HOSPITAL BUT THINKS IT IS [place] [facility] [facility]. PT ORIENTED TO NAME.
--- NOTE | 2022-05-25 16:31 | SUR.PHASEI ---
PT TO ROOM 261 PER CART PT MOVED TO BED WITH ASSIST OF 3 PT AWAKE ALERT ASSISTED WITH MOVE, NECK DRESSSING UNCHANGED AND DRAINS INTACT COMPRESSED WITH SMALL AMT RED DRAINAGE, CABA TO DD WITH APPROX 100 ML CLEAR YELLOW URINE NOT EMPTIED, PT HANDOFF AT BEDSIDE WITH LILLIAN LOUISE. PT ROLLED AND POSTERIOR NECK /BACK DRESSING AND DRAINS ASSESSED UNCHANGED. C COLLAR IN PLACE, PT MOVES BILAT FEET AND HANDS TO COMMANS STRONGLY,.
--- NOTE | 2022-05-25 16:43 | ANE.PACU2 ---
Inpatient post-anesthesia follow up: Airway intact: Yes Vital signs: Temperature 97.1 F Pulse Rate 73 Respiratory Rate 17 Blood Pressure 175/77 Pulse Oximetry 100 Oxygen Delivery Me thod Nasal Cannula Oxygen Flow Rate 2 Fraction of Inspir ed Oxygen Hydration adequate: Yes Nausea and vomiting: No Pain level: 4 Mental status: Baseline
[2022-05-25] MEDS: lactated ringers 1,000 ML 90 ML IV (16:54)
[2022-05-25] MEDS: cetylpyridinium Lozenge 1 EACH MUCOUS MEM (16:54)
[2022-05-25] MEDS: oxyCODONE 10 mg ER (12 HR) Tablet PO (17:08)
[2022-05-25] MEDS: docusate sodium 100 mg Capsule PO (17:08)
[2022-05-25] MEDS: HYDROcodone-acetaminophen 5-325 mg Tablet PO (19:43)
[2022-05-25] MEDS: ketorolac 30 mg/mL INJ IVP (20:40)
[2022-05-25] MEDS: metoprolol tartrate 25 mg Tablet 12.5 MG PO (22:02)
[2022-05-25] MEDS: insulin glargine 100 units/1 mL 30 UNIT SUBCUT (22:03)
[2022-05-25] MEDS: acetaminophen 325 mg Tablet 650 MG PO (22:47)
[2022-05-26] MEDS: HYDROcodone-acetaminophen 5-325 mg Tablet PO ×3 (01:30→21:31)
[2022-05-26] MEDS: lactated ringers 1,000 ML 90 ML IV ×2 (03:10→14:18)
[2022-05-26 04:00] VITALS: BP 122/60; PULSE 82; RESP 16; TEMP 37.8; O2SAT 96
--- NOTE | 2022-05-26 04:54 | PC.NURSE ---
Patient states that she is hot, This nurse took the patients temp and it was 98.4. Patient stated that she wanted me to remove her SCDs at this time. I educated the patient on their use. A fan was placed in the patients room at this time as well.
[2022-05-26] MEDS: ceFAZolin 2,000 MG in sodium chloride 0.9% (plus) 50 ML 100 MG IV ×2 (05:45→14:15)
--- NOTE | 2022-05-26 07:26 | P.PN_ITS ---
Subjective Subjective: POD 1 Patient alert communicating with friends. Reports mild neck pain mild shoulder pain. Denies dizziness, shortness of breath, headaches, chest pain. She lives with her who was recently diagnosed with lung cancer she is concerned about going home too soon and inability to take care of her self. Vitals/I&O/Wt Last Vital Signs Temp 100.0 F H 05/26/22 04:00 Pulse 82 05/26/22 04:00 Resp 16 05/26/22 04:00 BP 122/60 05/26/22 04:00 Pulse Ox 96 05/26/22 04:00 O2 Del Method 05/26/22 04:00 O2 Flow Rate 2 05/25/22 16:05 05/25/22 05/26/22 05/26/22 22:59 06:59 14:59 Intake Total 1240 / 2140 974 / 3114 Output Total 650 / 1300 480 / 1780 Balance 590 / 840 494 / 1334 Weight last 48 hrs Weight 152 lb 11.2 oz Physical Exam Narrative: Patient is alert and oriented x3 with a good general appearance normal mood and affect. Moderately tender with palpation about the anterior/posterior incisional sites. Incision appears to be clean and dry without signs of erythema or drainage. Hemovac drains intact both anteriorly and posteriorly. no signs of infection. Good motor strength throughout both upper extremities. Appears to fire in all motor groups with 5/5 strength. Hands are warm good cap refill in all digits. Normal sensation to light touch in all dermatomal areas. Urinary Catheter Management: Costa: Cath Placed During This Visit: yes Reason for Continuing Indwelling Catheter: Perioperative Use in Selected Surgeries Urinary Catheter Date of Insertion: 05/25/22 Urinary Catheter Time of Insertion: 09:30 Data : 05/19/22 09:20 05/25/22 07:42 A&P Assessment and plan (1) Cervical myelopathy with cervical radiculopathy: Hemovac drain was discontinued anteriorly with dressing changed. We will continue the posterior Hemovac drain until tomorrow. We will discontinue the [place] catheter this morning. Encourage mobilization to a chair and around the room with physical therapy. Encourage incentive spirometry for pulmonary toilet. We will have psychosocial rehabilitation counselor consult for placement or if stable consider home health care. (2) Status post cervical spinal fusion: Attestations Medical Necessity Statement*: Possible discharge tomorrow pending pain control and physical therapy. Coding Level of Care Code Acute Corn Crop Supervisor for Chg Fwd Diagnoses Cervical myelopathy with cervical radiculopathy G95.9; M54.12 Status post cervical spinal fusion Z98.1
--- NOTE | 2022-05-26 07:27 | PC.NURSE ---
PA at bedside, removed anterior drain and sutures. silverlon dressing applied. dry and intact. pt tolerated well.
[2022-05-26 08:19] VITALS: BP 119/67; PULSE 72; RESP 16; TEMP 36.7; O2SAT 95
[2022-05-26] MEDS: metformin 500 mg Tablet 1000 MG PO (08:33)
[2022-05-26] MEDS: multivitamin therapeutic Tablet 1 TAB PO (08:33)
[2022-05-26] MEDS: pantoprazole DR 40 mg Tablet PO (08:33)
[2022-05-26] MEDS: oxyCODONE 10 mg ER (12 HR) Tablet PO ×2 (08:33→17:10)
[2022-05-26] MEDS: fluoxetine 10 mg Capsule PO (08:33)
[2022-05-26] MEDS: aspirin 81 mg EC Tablet PO (08:33)
[2022-05-26] MEDS: lisinopril 20 mg Tablet PO (08:33)
[2022-05-26] MEDS: ezetimibe 10 mg Tablet PO (08:33)
[2022-05-26] MEDS: docusate sodium 100 mg Capsule PO ×2 (08:33→17:10)
[2022-05-26] MEDS: metoprolol tartrate 25 mg Tablet 12.5 MG PO ×2 (08:35→21:08)
[2022-05-26 11:45] VITALS: BP 105/57; PULSE 68; RESP 16; TEMP 36.8; O2SAT 89
--- NOTE | 2022-05-26 11:51 | PC.CHAP ---
Pastoral Care Encounter/Spiritual Assessment Type of Contact [] Declined electrical systems engineer visit [] Patient/Family/Request visit [] Outpatient visit [] Follow-up visit [] Physician referral [] Code/Alert [x] Routine visit [] Staff referral [] Actively dying [] Patient sleeping [] Family support [] [] Out of room [] Palliative care [] [] Receiving care in room [] Pre-surgical visit [] Trauma [] Long length of stay [] ICU visit [] Other: Relational/Emotional Strength [x] Patient feels connected with others/family/visitors/staff [] Distress [] Loneliness/isolation [] Abandonment Spirituality of Patient [x] Person of Ariadna [x] Attends Faith of their Ariadna [x] Believes in Prayer [x] Reads Bible or Yazdanism materials [] There are Spiritual issues to be addressed Neurourologist Interventions []x Prayer [x] Active listening [x] Non-anxious presence []x Spiritual/emotional support [] Crisis/trauma care [] Spiritual counseling [] Bereavement support [] Provided bereavement packet [] Provided Bible/devotional materials [] Provided toy/stuffed animal, coloring book to patient or family member [] Provided Communion [] Anointing/[place] [] Salvation [x] Completed spiritual assessment [] Other: Impact on Illness or Injury [] Angry [] Fearful [] Anxious [] Often cries [] Exhaustion [] Unable to work [] Unable to attend gnosticist [] Unable to walk/stand [] Unable to read [] Unable to drive [] Unable to eat/drink [] Unable to sleep [] Unable to be with family [] Patient intubated [] Other: Summary wonderful lady Time spent with patient 20p min
[2022-05-26 13:42] LABS: Glucose Point of Care 300 mg/dL (70-110)
[2022-05-26 15:26] VITALS: BP 108/61; PULSE 71; RESP 16; TEMP 36.9; O2SAT 94
[2022-05-26] MEDS: insulin lispro 100 unit/1 mL SUBCUT ×2 (17:09→21:30)
[2022-05-26] MEDS: ondansetron 2 mg/ML SDV 2 mL 4 MG IVP (17:55)
[2022-05-26 20:00] VITALS: BP 121/70; PULSE 76; RESP 17; TEMP 36.8; O2SAT 90
[2022-05-26] MEDS: insulin glargine 100 units/1 mL 30 UNIT SUBCUT (21:08)
[2022-05-26 21:16] LABS: Glucose Point of Care 249 mg/dL (70-110)
--- NOTE | 2022-05-26 22:15 | PC.NURSE ---
Upon most recent rounding, Patient stated that she did not feel well and was dizzy. This nurse helped the patient ambulate to the bedside potty and then got the patient back to bed without incident with the help of other staff. Bp 108/61 and 98.3 oral temp at this time. Patient stated feeling somewhat better after she got back to bed.
[2022-05-27] VITALS: BP 123/71; PULSE 75; RESP 17; TEMP 36.7; O2SAT 90
[2022-05-27] MEDS: ketorolac 30 mg/mL INJ IVP (02:47)
[2022-05-27] MEDS: lactated ringers 1,000 ML 90 ML IV (03:07)
[2022-05-27 03:28] VITALS: BP 130/67; PULSE 77; RESP 17; TEMP 36.7; O2SAT 93
--- NOTE | 2022-05-27 03:46 | PC.NURSE ---
Patient was noted to be slightly short of breath. This nurse applied 2L oxygen via nasal cannula at this time. Patient is now not complaining of any shortness of breath.
--- NOTE | 2022-05-27 06:46 | P.PN_ITS ---
Subjective Subjective: POD 2 Patient reports some tingling in her hands but overall arms are feeling better. Mild neck pain. Denies any swallowing difficulties or voice changes. Denies any chest pain or headaches. Vitals/I&O/Wt Last Vital Signs Temp 98.1 F 05/27/22 03:28 Pulse 77 05/27/22 03:28 Resp 17 05/27/22 03:28 BP 130/67 05/27/22 03:28 Pulse Ox 93 05/27/22 03:28 O2 Del Method 05/27/22 03:28 O2 Flow Rate 2 05/27/22 03:28 05/26/22 05/26/22 05/27/22 14:59 22:59 06:59 Intake Total 1340 / 1340 120 / 1460 1000 / 2460 Output Total 400 / 400 100 / 500 85 / 585 Balance 940 / 940 20 / 960 915 / 1875 Weight last 48 hrs Weight 152 lb 11.2 oz Physical Exam Narrative: Patient is alert and oriented x3 with a good general appearance normal mood and affect.? Moderately tender with palpation about the anterior/posterior incisional sites.? Incision appears to be clean and dry without signs of erythema or drainage.? Hemovac drain intact posteriorly. no signs of infection.? Good motor strength throughout both upper extremities.? Appears to fire in all motor groups with 5/5 strength.? Hands are warm good cap refill in all digits.? Normal sensation to light touch in all dermatomal areas. Urinary Catheter Management: Costa: Cath Placed During This Visit: yes, but has since been removed by the nurse Reason for Continuing Indwelling Catheter: Decision to DC Catheter Urinary Catheter Date of Insertion: 05/25/22 Urinary Catheter Time of Insertion: 09:30 Date Urinary Catheter Removed: 05/26/22 Time Urinary Catheter Discontinued: 08:38 Data : 05/19/22 09:20 05/25/22 07:42 A&P Assessment and plan (1) Status post cervical spinal fusion: Continue mobilizing with physical therapy. We will discontinue Hemovac drain posteriorly with dressing change. Apply Silverlon dressing. Continue work with social work associate for home health care and hopeful discharge home today. We will see her back in the office in 1 week's time for incision check. Continue incentive spirometer at home. Attestations Medical Necessity Statement*: Discharge home later today if home health care or placement arranged. Coding Level of Care Code Acute Spring Former Machine for Chg Fwd Diagnoses Status post cervical spinal fusion Z98.1
[2022-05-27 06:48] LABS: Glucose Point of Care 295 mg/dL (70-110)
--- NOTE | 2022-05-27 07:49 | PC.NURSE ---
Bedside report given to DANI Hurley
[2022-05-27 08:14] VITALS: BP 153/76; PULSE 77; RESP 18; TEMP 36.8; O2SAT 97
[2022-05-27] MEDS: metformin 500 mg Tablet 1000 MG PO (08:28)
[2022-05-27 08:29] VITALS: RESP 18; O2SAT 97
[2022-05-27] MEDS: docusate sodium 100 mg Capsule PO (08:29)
[2022-05-27] MEDS: multivitamin therapeutic Tablet 1 TAB PO (08:29)
[2022-05-27] MEDS: pantoprazole DR 40 mg Tablet PO (08:29)
[2022-05-27] MEDS: fluoxetine 10 mg Capsule PO (08:29)
[2022-05-27] MEDS: oxyCODONE 10 mg ER (12 HR) Tablet PO (08:29)
[2022-05-27] MEDS: aspirin 81 mg EC Tablet PO (08:29)
[2022-05-27] MEDS: lisinopril 20 mg Tablet PO (08:30)
[2022-05-27] MEDS: insulin lispro 100 unit/1 mL SUBCUT ×2 (09:07→12:42)
[2022-05-27 09:48] LABS: Glucose Point of Care 292 mg/dL (70-110)
[2022-05-27] MEDS: metoprolol tartrate 25 mg Tablet 12.5 MG PO (09:57)
[2022-05-27] MEDS: ezetimibe 10 mg Tablet PO (09:58)
--- NOTE | 2022-05-27 11:21 | PC.NURSE ---
Tried to notify Rene and Dr. Page to state Glipizid 10 mg ER is not in the pharmacy here.
[2022-05-27 11:29] VITALS: BP 153/66; PULSE 86; RESP 18; O2SAT 93
[2022-05-27 11:43] LABS: Glucose Point of Care 340 mg/dL (70-110)
--- NOTE | 2022-05-27 13:48 | PC.NURSE ---
Discussed discharge paperwork, new medications, held medications and follow up appointments with patient. Verbalized understanding.
[2022-05-27 15:20] VITALS: BP 153/66; PULSE 86; RESP 18; O2SAT 93
--- NOTE | 2022-05-28 15:33 | P.DS_ITS ---
Discharge Providers Date of Admission: 05/25/22 14:24 Date of Discharge: May 27, 2022 Attending Provider at Admission: Yuri Page DO Attending Provider at Discharge: Yuri Page DO Primary Care Provider: OBINNA Severino Diagnoses at Discharge Discharge Diagnosis (1) Status post cervical spinal fusion: Status: Acute Reason for Visit Reason for Visit: ACDF W/DECOMPRESSION/C4-7 Hospital Course Hospital Course uneventful Physical Exam Urinary Catheter Management: [place]: Cath Placed During This Visit: yes, but has since been removed by the nurse Reason for Continuing Indwelling Catheter: Decision to DC Catheter Urinary Catheter Date of Insertion: 05/25/22 Urinary Catheter Time of Insertion: 09:30 Date Urinary Catheter Removed: 05/26/22 Time Urinary Catheter Discontinued: 08:38 Discharge Data Studies Completed and Pending Completed Studies During Hospitalization Category Date Time Status XR cervical spine 3V* [id number] Routine Exams 05/25/22 00:00 Completed XR cervical spine 3V* [id number] Routine Exams 05/25/22 14:50 Completed Radiology Impressions Cervical Spine X-Ray 05/25/22 14:50 IMPRESSION: Anterior cervical discectomy and fusion as well as posterior fusion surgical hardware in place throughout the spine. Laboratory Results WBC 9.5 10^3/uL (4.0-10.0) 05/19/22 09:20 RBC 4.46 10^6/uL (4.1-5.3) 05/19/22 09:20 Hgb 11.6 g/dL (11.5-15.3) 05/19/22 09:20 Hct 37.1 % (37.0-47.0) 05/19/22 09:20 MCV 83.2 fl (81-99) 05/19/22 09:20 MCH 26.0 pg (28.0-34.0) L 05/19/22 09:20 MCHC 31.3 g/dL (30.0-36.0) 05/19/22 09:20 RDW 15.4 % (12.1-15.1) H 05/19/22 09:20 Plt Count 319 10^3/cmm (130-400) 05/19/22 09:20 MPV 10.3 fL (7.4-10.4) 05/19/22 09:20 Neut % (Auto) 72.4 % 05/19/22 09:20 Lymph % (Auto) 18.9 % 05/19/22 09:20 [place] % (Auto) 6.8 % 05/19/22 09:20 Eos % (Auto) 1.3 % 05/19/22 09:20 Baso % (Auto) 0.3 % 05/19/22 09:20 Neut # (Auto) 6.87 10^3/uL (1.8-7.7) 05/19/22 09:20 Lymph # (Auto) 1.8 10^3/uL (0.8-4.8) 05/19/22 09:20 [place] # (Auto) 0.7 10^3/uL (0.2-0.9) 05/19/22 09:20 Eos # (Auto) 0.1 10^3/uL (0.0-0.8) 05/19/22 09:20 Baso # (Auto) 0.0 10^3/uL (0.0-0.1) 05/19/22 09:20 Nucleated RBC % (auto) 0 % 05/19/22 09:20 Nucleated RBCs # 0.0 /100WBC 05/19/22 09:20 Sodium 140 mmol/L (136-145) 05/25/22 07:42 Potassium 4.2 mmol/L (3.5-5.1) 05/25/22 07:42 Chloride 104 mmol/L (98-107) 05/25/22 07:42 Carbon Dioxide 25 mmol/L (22-29) 05/25/22 07:42 Anion Gap 15.2 (5-19) 05/25/22 07:42 BUN 19 mg/dL (8-23) 05/25/22 07:42 Creatinine 1.2 mg/dL (0.5-0.9) H 05/25/22 07:42 GFR Calculation 44.4 mL/min (90-130) L 05/25/22 07:42 Glucose 110 mg/dL (65-115) 05/25/22 07:42 POC Glucose 340 mg/dL (70-110) H 05/27/22 11:38 Calculated Osmolality 293 mOsm/kg (285-295) 05/25/22 07:42 Calcium 9.8 mg/dL (8.5-10.5) 05/25/22 07:42 Vitals Last Vital Signs Temp 98.3 F 05/27/22 08:14 Pulse 86 05/27/22 15:20 Resp 18 05/27/22 15:20 BP 153/66 05/27/22 15:20 Pulse Ox 93 05/27/22 15:20 O2 Del Method Nasal Cannula 05/27/22 11:29 O2 Flow Rate 2 05/27/22 08:00 Discharge Plan Discharge Patient Disposition: Home Health Service Condition: Stable Prescriptions: New hydrocodone-acetaminophen 5-325 mg Tablet 1 - 2 tab PO Q4H PRN (Reason: Postop pain) Qty: 40 0RF Continued metformin 1,000 mg tablet 1,000 mg PO DAILY Qty: 90 1RF metoprolol tartrate 25 mg tablet 12.5 mg PO BID multivitamin Tablet 1 tab PO DAILY loperamide [Imodium A-D] 2 mg capsule 2 mg PO Q6H PRN (Reason: Diarrhea) calcium carbonate [Tums] 200 mg calcium (500 mg) tablet,chewable 200 mg PO DAILY PRN (Reason: Acid Reflux) glipizide 10 mg tablet extended release 24hr 10 mg PO DAILY Qty: 90 0RF Lantus Solostar U-100 Insulin 100 unit/mL (3 mL) insulin pen 30 unit SUBCUT QPM Qty: 15 3RF amoxicillin 500 mg capsule 500 mg PO Q8H 10 Days Qty: 30 0RF Rx Instructions: rx filled 05/20/22 10d/s (DME) FreeStyle Lite Strips Strip See Rx Instructions .ROUTE .COMPLEX Qty: 100 3RF Dose Instruction: USE 1 STRIP TO TEST ONCE DAILY Rx Instructions: USE 1 STRIP TO TEST ONCE DAILY (DME) Bone Growth Stimulator E0748 See Rx Instructions .Route .MEDSUPPLY Qty: 1 0RF Rx Instructions: As directed pantoprazole 40 mg tablet,delayed release (DR/EC) 40 mg PO DAILY Qty: 90 1RF (DME) Intraoperative neuromonitioring See Rx Instructions .Route .MEDSUPPLY Qty: 1 0RF Rx Instructions: As directed. lisinopril 20 mg tablet 20 mg PO QAM fluoxetine [Prozac] 10 mg capsule 10 mg PO QAM ezetimibe [Zetia] 10 mg tablet 10 mg PO QAM acetaminophen 500 mg Tablet 500 mg PO Q6H PRN (Reason: Pain) Held aspirin 81 mg tablet,delayed release (DR/EC) 81 mg PO DAILY Hold Instructions: Resume on 10/24/20. Discharge Orders: Discharge Order (Routine); Ordered 05/27/22 Ordered By: Brenda Duran Other Ambulatory Orders: DME: Walker (Order) Location: None Selected Ordered By: Yuri Page Referrals: Yuri Page, [Physician] - 06/04/22 10:45 am (APPOINTMENT WITH [facility]) Discharge Diet: Advance as tolerated Discharge Activity: Limit activity as instructed Patient Instructions: Hydrocodone/Acetaminophen (By mouth), Anterior Posterior Spinal Fusion (DC), Opioid Safety Activity Restrictions/Additional Instructions: Thank you for choosing [facility] for your care! The following is a list of instructions, from your provider, to follow upon your discharge to ensure you have the optimal recovery from your recent injury or surgery. Anterior Cervical Discectomy and Fusion and posterior instrumented cervical fusion: What to Expect at Home Your Recovery Follow-up care is a quispe part of your treatment and safety. Be sure to make and go to all appointments, and call your doctor if you are having problems. If you do not already have a follow-up appointment made, call office in the next 1-3 days to make follow up appointment for 1 weeks at [phone]. It is also a good idea to know your test results and keep a list of the medicines you take. You can expect your neck to feel stiff or sore after surgery. This should improve in the weeks after surgery. But it may take 4 to 6 months for you to get better completely. You may have trouble sitting or standing in one position for very long and may need pain medicine in the weeks after your surgery. It may take 4 to 6 weeks to get back to your usual activities, but it may depend on what kind of surgery you had. Your throat will feel sore and it may be difficult to swallow for the first 3 days after your surgery. As long as you can get liquids down without difficulty, this should slowly improve, otherwise call our office or seek medical attention if it becomes increasingly difficult to get anything down including liquids. Avoid hot liquids for first 3-5 days. Soothing foods/liquids such as jello, pudding, and luke warm soups are recommended until swallowing improves. Staying elevated will also help, it's advised you keep propped up at while sleeping to help reduce the swelling. You may use an ice pack directly on your incision or around it on the front of your neck, using a cloth to protect your skin; and a heating pad to the back of your neck as needed. Do not use over the counter anti-inflammatory medications (Ibuprofen, Motrin, Aleve, Advil, etc) Taking these meds after having a fusion can delay fusion rates, we recommend you avoid them for the first 3 [address] after your surgery[address] Dr. Page may advise you to work with a physical therapist to strengthen the muscles around your neck and back - this will be discussed at your follow - up appointments. The pain or numbness you were having in your arms before surgery should get better or go away completely. This care sheet gives you a general idea about how long it will take for you to recover. But each person recovers at a different pace. Follow the steps below to get better as quickly as possible. How can you care for yourself at home? Activity ? Rest when you feel tired. Getting enough sleep will help you recover. ? Try to walk each day. Start by walking a little more than you did the day before. Bit by bit, increase the amount you walk. Walking boosts blood flow and helps prevent pneumonia and constipation. Walking may also decrease your muscle soreness after surgery. ? No lifting anything that is more that 5 pounds. This may include heavy grocery bags and milk containers, a heavy briefcase or backpack, cat litter or dog food bags, a child, or a vacuum white work cleaner. ? Avoid strenuous activities, such as bicycle riding, jogging, weightlifting, or aerobic exercise, until your doctor says it is okay. ? Do not drive until your follow-up visit after your surgery, or until your doctor says it isokay. ? Avoid taking long car trips for 2 to 4 weeks after surgery. Your neck may become tired and painful from sitting too long in one position. ? You will probably need to take 4 to 6 weeks off from work. It depends on the type of work you do and how you feel. ? You may have sex as soon as you feel able, but avoid positions that put stress on your neck or cause pain. Diet ? You can eat your normal diet. If your stomach is upset, try bland, low-fat foods like plain rice, broiled chicken, toast, and yogurt ? Drink plenty of fluids. If you have kidney, heart, or liver disease and have to limit fluids, talk with your doctor before you increase the amount of fluids you drink. ? You may notice that your bowel movements are not regular right after your surgery. This is common. Try to avoid constipation and straining with bowel movements. You may want to take a fiber supplement every day. If you have not had a bowel movement after a couple of days, ask your doctor about taking a mild laxative. Medicines ? Take pain medicines exactly as directed. 1. If Dr. Page gave you a prescription medicine for pain, take lt as prescribed. 2. Do not take two or more pain medicines at the same time unless the doctor told you to. Many pain medicines have acetaminophen, which is Tylenol. Too much acetaminophen {Tylenol) can be harmful. 3. If you think your pain pill is making you sick to your stomach: 4. Take your pills after meals (unless your doctor has told you not to). 5. Ask your Dr. for a different pain pill. Incisioncare ? Remove your dressing 48 hours after your surgery. Ok to shower and get the incision wet. Do not overtly wash your incision. When done, pad dry, leave open to air thereafter. Avoid creams and ointments directly on your incision. ? Your sutures in the incision will dissolve and fall out on their own. ? Keep the area clean and dry. You may cover it with a gauze bandage if it weeps or rubs against clothing; if you choose to do this, change the dressing everyday. Other instructions ? Use a heating pad, hot water bottle, or gentle massage on your back to reduce stiffness. Avoid putting heat on your incision When should you call for help? ? Call 911 anytime you think you may need emergency care. For example, call if: ? You pass out (lose consciousness). ? You have sudden chest pain and shortness of breath, or you cough upblood. ? You cannot swallow. ? You have severe pain in your neck or back. ? Call your Dr. or seek immediate medical care if: ? You have pain that does not get better after you take pain pills. ? You have loose stitches, or your incision comes open. ? You have blood or fluid draining from the incision. ? You have signs of infection, such as: 1. Increased pain, swelling, warmth, or redness. 2. Red streaks leading from the site. 3. Pus draining from the site. 4. Swollen lymph nodes in your neck or armpits. 5. A fever. ? You have severe pain in your arms. ? You have new or increased weakness or numbness in your arms. ? Watch closely for any changes in your health, and be sure to contact your doctor if: ? You do not have a bowel movement after taking a laxative. Discharge Attestations Time Spent in Discharge Care*: less than 30 min Quality Metrics Clinical Quality Measures [ No reported AMI, CVA or VTE this stay] Coding Level of Care Code Acute g DC note Diagnoses Status post cervical spinal fusion Z98.1
== END 2022-05-27 14:15 | disposition home health service (06) | DRG 454 ==
LOC: MEDSURG 14:25
PROVIDERS: Anesthesiology; Admitting Provider Orthopaedic Surgery; PCP Nurse Practitioner Family; Visit Provider Orthopaedic Surgery
PROC: 0RB30ZZ Excision of Cervical Vertebral Disc, Open Approach (ICD-10-PCS; CPT 22551; principal; 2022-05-25 08:30)
PROC: 0RG20A0 Fusion of 2 or more Cervical Vertebral Joints with Interbody Fusion Device, Anterior Approach, Anterior Column, Open Approach (ICD-10-PCS; CPT 22600; 2022-05-25 08:30)
DX: M50.121 Cervical disc disorder at C4-C5 level with radiculopathy (principal); M50.021 Cervical disc disorder at C4-C5 level with myelopathy; M50.022 Cervical disc disorder at C5-C6 level with myelopathy; M50.122 Cervical disc disorder at C5-C6 level with radiculopathy; M48.02 Spinal stenosis, cervical region; Z88.5 Allergy status to narcotic agent; Z88.2 Allergy status to sulfonamides; Z79.82 Long term (current) use of aspirin; Z79.84 Long term (current) use of oral hypoglycemic drugs; Z79.4 Long term (current) use of insulin; I25.10 Atherosclerotic heart disease of native coronary artery without angina pectoris; K21.9 Gastro-esophageal reflux disease without esophagitis; I10 Essential (primary) hypertension; E78.5 Hyperlipidemia, unspecified; E11.9 Type 2 diabetes mellitus without complications
CPT/HCPCS: 36415; 36416; 51702; 72040; 76000; 78452; 80048; 82962; 85025; 93017; 96372; 97110; 97116; 97161; 97530; A9500; C1713 ×2; C9359; J0330; J0690; J1100; J1170; J1200; J1815; J1885; J2370; J2405; J2704; J2710; J2785; J3010; J3370; J3490; J7030; J7120; L0174

== ENCOUNTER → 2022-06-04 10:29 | Outpatient (BNVA) | payer MEDICARE, OTHER, SELFPAY | PROVIDERS: PCP Nurse Practitioner Family; Visit Provider Physician Assistant | DX: Z47.89 Encounter for other orthopedic aftercare (principal); Z98.1 Arthrodesis status | CPT/HCPCS: 99024 ==

== ENCOUNTER → 2022-06-09 10:39 | Outpatient (BNVA) | payer MEDICARE, OTHER, SELFPAY | PROVIDERS: PCP Nurse Practitioner Family; Visit Provider Physician Assistant | DX: Z47.89 Encounter for other orthopedic aftercare (principal); Z98.1 Arthrodesis status; N39.0 Urinary tract infection, site not specified | CPT/HCPCS: 72040; 81000; 87077; 87086; 87184; 99024 ==

== ENCOUNTER → 2022-07-07 10:01 | Outpatient (BNVA) | payer MEDICARE, OTHER, SELFPAY | PROVIDERS: PCP Nurse Practitioner Family; Visit Provider Physician Assistant | DX: Z98.1 Arthrodesis status (principal) | CPT/HCPCS: 72040; 99024 ==

== ENCOUNTER → 2022-07-28 15:30 | Outpatient (BNVA) | payer MEDICARE, OTHER, SELFPAY | PROVIDERS: PCP Nurse Practitioner Family; Visit Provider Nurse Practitioner Family | DX: N39.0 Urinary tract infection, site not specified (principal); E11.9 Type 2 diabetes mellitus without complications; Z79.4 Long term (current) use of insulin | CPT/HCPCS: 81000; 87086 ==

== ENCOUNTER → 2022-08-04 09:46 | Outpatient (BNVA) | payer MEDICARE, OTHER, SELFPAY | PROVIDERS: PCP Nurse Practitioner Family; Visit Provider Physician Assistant | DX: Z98.1 Arthrodesis status (principal) | CPT/HCPCS: 72040; 99024 ==

== ENCOUNTER → 2022-09-03 09:57 | Outpatient (BNVA) | payer MEDICARE, OTHER, SELFPAY | PROVIDERS: PCP Nurse Practitioner Family; Visit Provider Nurse Practitioner Family | DX: E11.9 Type 2 diabetes mellitus without complications (principal); Z79.4 Long term (current) use of insulin; E78.5 Hyperlipidemia, unspecified; I10 Essential (primary) hypertension; N39.0 Urinary tract infection, site not specified | CPT/HCPCS: 80053; 80061; 83036; 87086 ==

== ENCOUNTER → 2022-10-02 09:37 | Outpatient (BNVA) | payer MEDICARE, OTHER, SELFPAY | PROVIDERS: PCP Nurse Practitioner Family; Visit Provider Nurse Practitioner Family | DX: N39.0 Urinary tract infection, site not specified (principal) | CPT/HCPCS: 81000; 87077; 87086; 87184 ==

== ENCOUNTER → 2022-10-12 13:30 | Outpatient (BNVA) | payer MEDICARE, OTHER, SELFPAY | PROVIDERS: PCP Nurse Practitioner Family; Visit Provider Nurse Practitioner Family | DX: I25.10 Atherosclerotic heart disease of native coronary artery without angina pectoris (principal); I10 Essential (primary) hypertension; Z87.891 Personal history of nicotine dependence; Z79.82 Long term (current) use of aspirin | CPT/HCPCS: 99214 ==

== ENCOUNTER → 2022-10-13 09:47 | Outpatient (BNVA) | payer MEDICARE, OTHER, SELFPAY | PROVIDERS: PCP Nurse Practitioner Family; Visit Provider Nurse Practitioner Family | DX: N28.9 Disorder of kidney and ureter, unspecified (principal) | CPT/HCPCS: 87086 ==

== ENCOUNTER → 2022-10-27 09:15 | Outpatient (BNVA) | payer MEDICARE, OTHER, SELFPAY | PROVIDERS: PCP Nurse Practitioner Family; Visit Provider Physician Assistant | DX: Z98.1 Arthrodesis status (principal) | CPT/HCPCS: 72040; 99213 ==

== ENCOUNTER → 2022-12-25 09:00 | Outpatient (BNVA) | payer MEDICARE, OTHER, SELFPAY | PROVIDERS: PCP Nurse Practitioner Family; Referring Provider Family Medicine; Visit Provider Orthopaedic Surgery | DX: S62.395A Other fracture of fourth metacarpal bone, left hand, initial encounter for closed fracture (principal); W18.30XA Fall on same level, unspecified, initial encounter | CPT/HCPCS: 26600; 99212 ==

== ENCOUNTER → 2023-02-01 10:30 | Outpatient (BNVA) | payer MEDICARE, OTHER, SELFPAY | PROVIDERS: PCP Nurse Practitioner Family; Visit Provider Nurse Practitioner Family | DX: N39.0 Urinary tract infection, site not specified (principal) | CPT/HCPCS: 81000; 87077; 87086; 87184 ==

== ENCOUNTER 2023-02-09 14:34 | Outpatient (CLI) | payer MEDICARE, OTHER, SELFPAY ==
--- NOTE | 2023-02-09 14:30 | US_ITS ---
WS: [id number] ULTRASOUND SOFT TISSUES medial LEFT lower leg. HISTORY: R22.40 - Localized swelling, mass and lump, unspecified l... COMPARISON: None available. TECHNIQUE: 2-D and color Doppler imaging is submitted. Ultrasound is directed to the medial LEFT lower in the region of the palpable abnormality. There is a lipoma measuring 1.2 x 0.5 x 1.6 cm in the subcutaneous soft tissue. There is a mildly prominent sup erficial vein with normal flow. US/US soft tissue/extremity [id number] IMPRESSION: Palpable area medial LEFT lower extremity corresponds to a lipoma.
== END 2023-02-09 14:35 | disposition home or self-care (01) ==
PROVIDERS: PCP Nurse Practitioner Family; Visit Provider Nurse Practitioner Family
DX: D17.24 Benign lipomatous neoplasm of skin and subcutaneous tissue of left leg (principal)
CPT/HCPCS: 76882; 81000; 87086

== ENCOUNTER → 2023-02-15 13:02 | Outpatient (BNVA) | payer MEDICARE, OTHER, SELFPAY | PROVIDERS: PCP Nurse Practitioner Family; Visit Provider Nurse Practitioner Family | DX: N39.0 Urinary tract infection, site not specified (principal) | CPT/HCPCS: 81000; 87086 ==

== ENCOUNTER → 2023-03-26 14:07 | Outpatient (BNVA) | payer MEDICARE, OTHER, SELFPAY | PROVIDERS: PCP Nurse Practitioner Family; Visit Provider Nurse Practitioner Family | DX: R05.9 Cough, unspecified (principal); R30.0 Dysuria | CPT/HCPCS: 81000; 87426 ==

== ENCOUNTER → 2023-04-26 13:43 | Outpatient (BNVA) | payer MEDICARE, OTHER, SELFPAY | PROVIDERS: PCP Nurse Practitioner Family; Visit Provider Nurse Practitioner Family | DX: N39.0 Urinary tract infection, site not specified (principal); E11.9 Type 2 diabetes mellitus without complications; Z79.4 Long term (current) use of insulin; I10 Essential (primary) hypertension | CPT/HCPCS: 80053; 80061; 81000; 83036; 87077; 87086; 87184 ==

== ENCOUNTER → 2023-05-04 08:42 | Outpatient (BNVA) | payer MEDICARE, OTHER, SELFPAY | PROVIDERS: PCP Nurse Practitioner Family; Visit Provider Physician Assistant | DX: Z98.1 Arthrodesis status (principal) | CPT/HCPCS: 72040; 99213 ==

== ENCOUNTER → 2023-05-17 11:15 | Outpatient (BNVA) | payer MEDICARE, OTHER, SELFPAY | PROVIDERS: PCP Nurse Practitioner Family; Visit Provider Nurse Practitioner Family | DX: R35.0 Frequency of micturition (principal) | CPT/HCPCS: 81000 ==

== ENCOUNTER → 2023-09-23 12:45 | Outpatient (BNVA) | payer MEDICARE, OTHER, SELFPAY | PROVIDERS: PCP Nurse Practitioner Family; Visit Provider Orthopaedic Surgery | DX: Z98.1 Arthrodesis status (principal); M48.062 Spinal stenosis, lumbar region with neurogenic claudication | CPT/HCPCS: 72110; 99214 ==

== ENCOUNTER → 2023-10-19 08:50 | Outpatient (BNVA) | payer MEDICARE, OTHER, SELFPAY | PROVIDERS: PCP Nurse Practitioner Family; Visit Provider Anesthesiology Pain Medicine | DX: M48.062 Spinal stenosis, lumbar region with neurogenic claudication (principal); M47.816 Spondylosis without myelopathy or radiculopathy, lumbar region; M47.817 Spondylosis without myelopathy or radiculopathy, lumbosacral region | CPT/HCPCS: 99204 ==

== ENCOUNTER 2023-10-20 11:04 | Outpatient (CLI) | payer MEDICARE, OTHER, SELFPAY ==
--- NOTE | 2023-10-20 11:00 | MR_ITS ---
WS: [id number] MRI LUMBAR SPINE NONCONTRAST HISTORY: back pain COMPARISON: None available. TECHNIQUE: Sagittal and axial multisequence imaging is submitted. Postoperative fusion cervical spine. Less than 2 mm anterolisthesis of L3. 3 mm anterolisthesis of L4. Degenerative disc disease most sign ificant at L4-5. No acute fracture. No marrow edema. Conus terminates normally at L1. L1-L2: Bilateral facet joint arthritis. Very mild foraminal narrowing. No high-grade stenosis. L2-L3: Mild annular disc bulging with ligamentum flavum and facet arthritis. Mild bilateral foraminal stenosis. L3-L4: Diffuse annular disc bulging, asymmetric to the LEFT. Marked ligamentum flavum and facet arthr itis. Mild disc encroachment upon the subarticular recesses, LEFT greater than RIGHT. Mild bilateral foraminal stenosis, LEFT greater than RIGHT. Very similar to the prior study. L4-L5: Diffuse annular disc bulging with osteophytic ridging. Shallow central disc osteophyte protrus ion. Disc and osteophyte encroachment upon the subarticular recesses causing at least moderate forami nal stenosis. Moderate to severe RIGHT and moderate LEFT foraminal stenosis due to disc and osteophyt e disease. Very similar to the prior study. Continued moderate central stenosis with bilateral subart icular recess stenosis. L5-S1: Mild annular disc bulging with facet joint arthritis. Mild osteophytic ridging. Very shallow c entral disc protrusion. Minimal bilateral foraminal stenosis. Very slight contact on the RIGHT S1 ner ve root. IMPRESSION: 1. Mild progression of degenerative disc disease and spondylosis since 05/18/2022. 2. L4-5: Moderate central with bilateral subarticular recess stenosis. Disc osteophyte encroachment upon the traversing L5 nerve roots. Moderate to severe RIGHT and moderate LEFT foraminal stenosis. Mi ld progression since the prior study. 3. L3-4: Mild bilateral subarticular recess and foraminal stenosis, LEFT greater than RIGHT. 4. L2-3: Mild bilateral foraminal stenosis without change. 5. L5-S1: Shallow central disc protrusion. Mild disc contact on the RIGHT S1 nerve root and mild pedro ateral foraminal stenosis, no change.
== END 2023-10-20 11:05 | disposition home or self-care (01) ==
LOC: RAD 11:04
PROVIDERS: PCP Nurse Practitioner Family; Visit Provider Orthopaedic Surgery
DX: M51.37 Other intervertebral disc degeneration, lumbosacral region (principal); M54.9 Dorsalgia, unspecified; M48.061 Spinal stenosis, lumbar region without neurogenic claudication
CPT/HCPCS: 72148

== ENCOUNTER → 2023-10-26 14:37 | Outpatient (BNVA) | payer MEDICARE, OTHER, SELFPAY | PROVIDERS: PCP Nurse Practitioner Family; Visit Provider Anesthesiology Pain Medicine | DX: M54.16 Radiculopathy, lumbar region (principal) | CPT/HCPCS: 64483; 64484; J1100; J3490 ==

== ENCOUNTER 2023-10-28 06:00 | Outpatient (RCR) | payer MEDICARE, OTHER, SELFPAY | END 2023-11-16 23:59 | disposition home or self-care (01) | LOC: WPT 06:00 | PROVIDERS: PCP Nurse Practitioner Family; Visit Provider Anesthesiology Pain Medicine | DX: M54.50 Low back pain, unspecified (principal); G89.29 Other chronic pain | CPT/HCPCS: 97110; 97112; 97162; 97530 ==

== ENCOUNTER → 2023-11-09 12:35 | Outpatient (BNVA) | payer MEDICARE, OTHER, SELFPAY | PROVIDERS: PCP Nurse Practitioner Family; Visit Provider Anesthesiology Pain Medicine | DX: M54.16 Radiculopathy, lumbar region (principal); M48.062 Spinal stenosis, lumbar region with neurogenic claudication | CPT/HCPCS: 64483; 64484; J1100; J3490 ==

== ENCOUNTER 2023-11-17 06:00 | Outpatient (RCR) | payer MEDICARE, OTHER, SELFPAY | END 2023-12-17 23:59 | disposition home or self-care (01) | LOC: WPT 06:00 | PROVIDERS: PCP Nurse Practitioner Family; Visit Provider Anesthesiology Pain Medicine | DX: M54.50 Low back pain, unspecified (principal); G89.29 Other chronic pain | CPT/HCPCS: 97110; 97112 ==

== ENCOUNTER → 2023-12-07 08:37 | Outpatient (BNVA) | payer MEDICARE, OTHER, SELFPAY | PROVIDERS: PCP Nurse Practitioner Family; Visit Provider Anesthesiology Pain Medicine | DX: M48.062 Spinal stenosis, lumbar region with neurogenic claudication (principal) | CPT/HCPCS: 99215 ==

== ENCOUNTER → 2023-12-16 07:51 | Outpatient (BNVA) | payer MEDICARE, OTHER, SELFPAY | PROVIDERS: PCP Nurse Practitioner Family; Visit Provider Nurse Practitioner Family | DX: E11.9 Type 2 diabetes mellitus without complications (principal); Z79.4 Long term (current) use of insulin; I10 Essential (primary) hypertension; Z79.899 Other long term (current) drug therapy | CPT/HCPCS: 80053; 80061; 83036 ==

== ENCOUNTER 2024-01-05 14:31 | Outpatient (CLI) | payer MEDICARE, OTHER, SELFPAY ==
--- NOTE | 2024-01-05 14:40 | MM_ITS ---
WS: [id number] VIEWS: MLO and CC views both breasts. 3D digital tomosynthesis is also included in this exam. Comparison made with prior exam of 07/03/2015, 09/08/2016, 09/28/2017, 10/26/2018, 05/10/2020,. Findings: There was no sign of mass, architectural distortion or suspicious calcification in either breast. The breasts are heterogeneously dense which may obscure small masses MM/[place] [id number] Impression: BI-RADS: 2-Benign finding. FOLLOW-UP: 1 Year Follow-up This mammogram was also analyzed by the Computer Aided Detection System R2 Imag e [employer]essel [employer].
== END 2024-01-05 14:32 | disposition home or self-care (01) ==
LOC: MOBLMAM 14:33
PROVIDERS: PCP Nurse Practitioner Family; Visit Provider Nurse Practitioner Family
DX: Z12.31 Encounter for screening mammogram for malignant neoplasm of breast (principal)
CPT/HCPCS: 77063; 77067; 80053; 80061; 83036

== ENCOUNTER → 2024-02-15 09:29 | Outpatient (BNVA) | payer MEDICARE, OTHER, SELFPAY | PROVIDERS: PCP Nurse Practitioner Family; Visit Provider Nurse Practitioner Family | DX: R30.0 Dysuria (principal) | CPT/HCPCS: 81000; 87086 ==

== ENCOUNTER → 2024-02-23 11:20 | Outpatient (BNVA) | payer MEDICARE, OTHER, SELFPAY | PROVIDERS: PCP Nurse Practitioner Family; Visit Provider Nurse Practitioner Family | DX: N39.0 Urinary tract infection, site not specified (principal) | CPT/HCPCS: 81003; 87086 ==

== ENCOUNTER → 2024-04-27 09:31 | Outpatient (BNVA) | payer MEDICARE, OTHER, SELFPAY | PROVIDERS: PCP Nurse Practitioner Family; Visit Provider Nurse Practitioner Family | DX: I10 Essential (primary) hypertension (principal); E11.9 Type 2 diabetes mellitus without complications | CPT/HCPCS: 80053; 80061; 83036 ==

== ENCOUNTER → 2024-05-17 14:52 | Outpatient (BNVA) | payer MEDICARE, OTHER, SELFPAY | PROVIDERS: PCP Nurse Practitioner Family; Visit Provider Nurse Practitioner Family | DX: N39.0 Urinary tract infection, site not specified (principal); N30.00 Acute cystitis without hematuria | CPT/HCPCS: 81000; 87086 ==

== ENCOUNTER → 2024-05-18 15:56 | Outpatient (BNVA) | payer MEDICARE, OTHER, SELFPAY | PROVIDERS: PCP Nurse Practitioner Family; Visit Provider Orthopaedic Surgery | DX: M48.062 Spinal stenosis, lumbar region with neurogenic claudication (principal); M54.9 Dorsalgia, unspecified | CPT/HCPCS: 72110; 99214 ==

== ENCOUNTER → 2024-06-01 10:02 | Outpatient (BNVA) | payer MEDICARE, OTHER, SELFPAY | PROVIDERS: PCP Nurse Practitioner Family; Visit Provider Orthopaedic Surgery | DX: R03.0 Elevated blood-pressure reading, without diagnosis of hypertension (principal); M48.062 Spinal stenosis, lumbar region with neurogenic claudication; G95.9 Disease of spinal cord, unspecified; M54.12 Radiculopathy, cervical region | CPT/HCPCS: 99214 ==

== ENCOUNTER 2024-06-14 10:39 | Outpatient (CLI) | payer MEDICARE, OTHER, SELFPAY ==
--- NOTE | 2024-06-14 11:00 | MR_ITS ---
WS: [id number] MRI LUMBAR SPINE NONCONTRAST TECHNIQUE: Sagittal T1, T2 and STIR imaging. Axial T1 and T2 imaging. CLINICAL INFORMATION: Lower Back Pain COMPARISON: MRI 10/20/2023 FINDINGS: Mild lumbar curve. No acute compression. Disc space narrowing worse at L4-5 similar to previous. Disc bulging worse at L3-L5. No acute compression fractures. No high-grade central canal stenosis. Shallow central protrusions at T10-T11 and T11-T12. Prominent LEFT foraminal protrusion T11-T12 with moderate LEFT foraminal narrowing. This is similar to previous. L1-L2: Mild annular bulging. Mild facet arthropathy. Spinal canal and foramen are patent. L2-L3: Mild annular bulging. Moderate facet arthropathy. Mild LEFT foraminal narrowing. L3-L4: Mild disc bulging with slight narrowing LEFT greater than RIGHT subarticular recess. Moderate facet arthropathy. Small bilateral foraminal protrusions with mild foraminal narrowing and slight con tact of the exiting L3 nerve roots bilaterally. L4-L5: Disc desiccation. Disc bulging with impingement on the traversing L5 nerve roots bilaterally i n the subarticular recess. Moderate central canal stenosis at this level appears slightly progressed. Moderate facet arthropathy. Moderate RIGHT and mild LEFT foraminal narrowing. L5-S1: Tiny shallow central protrusion. Slight contact of the S1 nerve roots. Moderate facet arthropa thy. Foramen are patent. Visualized pelvic bony structures: Normal. Paravertebral soft tissues: Normal. Small RIGHT renal cyst. Prior postoperative changes cervical and upper thoracic fusion. MR/MR lumbar spine wo con* [id number] IMPRESSION: 1. Mild lumbar curve. No acute compression. Disc space narrowing worse at L4-5 similar to previous. 2. Moderate central canal stenosis L4-5 appears slightly progressed with impin gement on the RIGHT greater than LEFT traversing L5 nerve roots in the subartic ular recess. Moderate RIGHT L4-5 foraminal narrowing at this level impinges the exiting RIGHT L4 nerve root. 3. Small bilateral foraminal protrusions L3-4 with slight contact of the exiti ng L3 nerve roots bilaterally. 4. Moderate LEFT T11-T12 foraminal narrowing with a LEFT foraminal protrusion appears similar to previous. 5. Shallow central protrusion L5-S1 with slight contact of the S1 nerve roots appears unchanged. 6. Moderate facet arthropathy L3-L5.
== END 2024-06-14 10:40 | disposition home or self-care (01) ==
LOC: RAD 10:40
PROVIDERS: PCP Nurse Practitioner Family; Visit Provider Orthopaedic Surgery
DX: G95.9 Disease of spinal cord, unspecified (principal); M54.12 Radiculopathy, cervical region; M51.360 Other intervertebral disc degeneration, lumbar region with discogenic back pain only; M47.896 Other spondylosis, lumbar region; M51.24 Other intervertebral disc displacement, thoracic region; M54.16 Radiculopathy, lumbar region; M99.63 Osseous and subluxation stenosis of intervertebral foramina of lumbar region
CPT/HCPCS: 72148

== ENCOUNTER → 2024-07-04 14:00 | Outpatient (BNVA) | payer MEDICARE, OTHER, SELFPAY | PROVIDERS: PCP Nurse Practitioner Family; Visit Provider Orthopaedic Surgery | DX: M48.062 Spinal stenosis, lumbar region with neurogenic claudication | CPT/HCPCS: 99214 ==

== ENCOUNTER → 2024-07-06 09:48 | Outpatient (BNVA) | payer MEDICARE, OTHER, SELFPAY | PROVIDERS: PCP Nurse Practitioner Family; Visit Provider Nurse Practitioner Family | DX: I10 Essential (primary) hypertension (principal); E11.9 Type 2 diabetes mellitus without complications | CPT/HCPCS: 80053; 80061; 83036 ==

== ENCOUNTER → 2024-08-07 09:11 | Outpatient (BNVA) | payer MEDICARE, OTHER, SELFPAY | PROVIDERS: PCP Nurse Practitioner Family; Visit Provider Nurse Practitioner Family | DX: N39.0 Urinary tract infection, site not specified (principal) | CPT/HCPCS: 81000; 87086 ==

== ENCOUNTER → 2024-08-28 10:11 | Outpatient (BNVA) | payer MEDICARE, OTHER, SELFPAY | PROVIDERS: PCP Nurse Practitioner Family; Visit Provider Nurse Practitioner Family | DX: N30.00 Acute cystitis without hematuria (principal) | CPT/HCPCS: 87086 ==

== ENCOUNTER → 2024-09-04 11:32 | Outpatient (BNVA) | payer MEDICARE, OTHER, SELFPAY | PROVIDERS: PCP Nurse Practitioner Family; Visit Provider Nurse Practitioner Family | DX: N39.0 Urinary tract infection, site not specified (principal) | CPT/HCPCS: 81000; 87086 ==

== ENCOUNTER → 2024-09-25 09:30 | Outpatient (BNVA) | payer MEDICARE, OTHER, SELFPAY | PROVIDERS: PCP Nurse Practitioner Family; Visit Provider Nurse Practitioner Family | DX: N39.0 Urinary tract infection, site not specified (principal); F41.9 Anxiety disorder, unspecified | CPT/HCPCS: 87086 ==

== ENCOUNTER → 2024-10-05 08:11 | Outpatient (BNVA) | payer MEDICARE, OTHER, SELFPAY | PROVIDERS: PCP Nurse Practitioner Family; Visit Provider Orthopaedic Surgery | DX: M48.062 Spinal stenosis, lumbar region with neurogenic claudication (principal) | CPT/HCPCS: 36415; 72110; 80053; 81001; 83036; 85025; 99214 ==

== ENCOUNTER → 2024-10-19 10:52 | Outpatient (BNVA) | payer MEDICARE, OTHER, SELFPAY | PROVIDERS: PCP Nurse Practitioner Family; Visit Provider Nurse Practitioner Family | DX: N39.0 Urinary tract infection, site not specified (principal) | CPT/HCPCS: 87086 ==

== ENCOUNTER → 2024-10-27 09:57 | Outpatient (BNVA) | payer MEDICARE, OTHER, SELFPAY | PROVIDERS: PCP Nurse Practitioner Family; Visit Provider Family Medicine | DX: Z01.818 Encounter for other preprocedural examination (principal); R00.1 Bradycardia, unspecified | CPT/HCPCS: 81003; 93005 ==

== ENCOUNTER 2024-11-15 08:10 | Day surgery (SDC) | payer MEDICARE, OTHER, SELFPAY ==
[2024-11-15] VITALS (9 sets, daily range): BP systolic 114–169; BP diastolic 50–143; PULSE 65–84; RESP 16–17; TEMP 36.2–36.4; O2SAT 92–100; BMI 30.2
[2024-11-15] MEDS: sodium chloride 0.9% 1,000 ML 30 ML IV (08:43)
[2024-11-15 08:45] LABS: Glucose Point of Care 208 mg/dL (70-110)
--- NOTE | 2024-11-15 08:50 | ANES.PREANE2 ---
Pre-Anesthetic Assessment Height/Weight: Height 1.45 m Weight 63.503 kg Temp Pulse Resp BP Pulse Ox O2 Del Method 97.2 F L 65 17 169/143 100 Room Air 11/15/24 08:36 11/15/24 08:36 11/15/24 08:36 11/15/24 08:36 11/15/24 08:36 11/15/24 08:38 Preop Diagnosis: Lumbar stenosis with neurogenic claudication Operation Date: 11/15/24 10:05 Proposed Procedures p Lumbar Spine Decompression Lumbar Decompression(Not Applicable) - Yuri Page, DO Familial anesthetic complications: None Was Beta Onur taken within 24 hours: Yes Was Clonidine taken within 24 hours: N/A Last intake: Intake Last Liquid Date 11/14/24 Last Liquid Time 22:00 Last Solid Date 11/14/24 Last Solid Time 22:00 Social No alcohol and No tobacco Exam alert, oriented x 3, clear to auscultation bilaterally and regular rate & rhythm Airway Dentition: full CV/HEM Coronary Artery Disease and Hypertension GI Gastroesophageal Reflux Disease Metabolic Diabetes Mellitus Anesthetic Plan ASA status: 3 Anesthesia: General Risk of > 500 ml blood loss (7ml/kg in children): No Medications/Allergies Home Medications ?Medication ?Instructions ?Recorded ?Confirmed ?Last Taken ?Type aspirin 81 mg tablet,delayed 81 mg PO DAILY 08/17/19 11/14/24 11/09/24 History release calcium carbonate (Tums) 200 mg PO DAILY PRN Acid Reflux 04/09/22 11/14/24 11/14/24 History loperamide 2 mg capsule (Imodium 2 mg PO Q6H PRN Diarrhea 04/09/22 11/14/24 Unknown History A-D) multivitamin 1 tab PO DAILY 04/09/22 11/14/24 Unknown History Bone Growth Stimulator E0748 #1 ea 05/25/22 10/05/24 Unknown Rx intraoperative neurophysiological #1 ea 05/25/22 10/05/24 Unknown Rx monitoring acetaminophen 500 mg tablet 500 mg PO Q6H PRN Pain 05/26/22 11/14/24 Unknown History blood sugar diagnostic (FreeStyle #100 strips 02/16/24 10/05/24 Unknown Rx Lite Strips) metformin 1,000 mg tablet 1,000 mg PO DAILY #90 tabs 07/13/24 11/14/24 11/14/24 Rx insulin glargine 100 unit/mL (3 34 unit (0.34 mL) SUBCUT QPM #15 mL 10/27/24 11/14/24 11/14/24 Rx mL) subcutaneous pen (Lantus Solostar U-100 Insulin) amlodipine 5 mg tablet 5 mg PO DAILY 11/15/24 11/15/24 11/15/24 History ezetimibe 10 mg tablet 10 mg PO DAILY 11/15/24 11/15/24 11/14/24 History fluoxetine 40 mg capsule 40 mg PO DAILY 11/15/24 11/15/24 11/14/24 History lisinopril 20 mg tablet 20 mg PO DAILY 11/15/24 11/15/24 11/14/24 History metoprolol tartrate 25 mg tablet 25 mg PO DAILY 11/15/24 11/15/24 11/15/24 History omeprazole 40 mg capsule,delayed 40 mg PO DAILY 11/15/24 11/15/24 Unknown History release Allergies Allergy/AdvReac Type Severity Reaction Status Date / Time atorvastatin (From Lipitor) Allergy Unknown Verified 11/15/24 08:25 codeine Allergy Unknown Verified 11/15/24 08:25 sulfamethoxazole (From Allergy Unknown Verified 11/15/24 08:25 Bactrim) trimethoprim (From Bactrim) Allergy Unknown Verified 11/15/24 08:25 Current Medications Generic Name Dose Route Start Last Admin Trade Name Freq PRN Reason Stop Dose Admin Sodium Chloride 1,000 mls @ 30 mls/hr 11/15/24 08:30 11/15/24 08:43 Sodium Chloride 0.9% IV 11/16/24 08:29 30 mls/hr .Q24H STACI Administration PFSH Anesthesia Medical History GERD (gastroesophageal reflux disease) Hiatal hernia Type 2 diabetes mellitus with insulin therapy CAD (coronary artery disease) Hyperlipidemia LDL goal <100 Type 2 diabetes mellitus with insulin therapy HTN (hypertension), benign Surgical History H/O neck surgery H/O: hysterectomy History of appendectomy Family History Father CAD (coronary artery disease) Mother CAD (coronary artery disease) Social History Smoking and tobacco/nicotine status: never used tobacco/nicotine Alcohol intake: never Substance/Drug Use: never Adopted: No Lives independently: Yes Household members: spouse Housing: Manufactured/Mobile home Marital status: Data Anesthesia Cardiac Studies: Sestamibi Stress Test (Cardiology) 05/22/22
[2024-11-15] MEDS: ceFAZolin 2,000 mg SDV 2000 MG IVP (09:00)
--- NOTE | 2024-11-15 09:01 | W.PM.OPSFHP ---
Same Day Surgery H&P Indication for Procedure/HPI DATE OF PROCEDURE: November 15, 2024 CHIEF COMPLAINT/INDICATIONFOR SURGICAL PROCEDURE: Back and right leg pain PREOP DIAGNOSIS: Lumbar stenosis with neurogenic claudication PLANNED PROCEDURE: Operation Date: 11/15/24 10:05 Proposed Procedures p Lumbar Spine Decompression Lumbar Decompression(Not Applicable) - Yuri Page, DO Medications/Allergies* Home Medications ?Medication ?Instructions ?Recorded ?Confirmed ?Type aspirin 81 mg tablet,delayed 81 mg PO DAILY 08/17/19 11/14/24 History release calcium carbonate (Tums) 200 mg PO DAILY PRN Acid Reflux 04/09/22 11/14/24 History loperamide 2 mg capsule (Imodium 2 mg PO Q6H PRN Diarrhea 04/09/22 11/14/24 History A-D) multivitamin 1 tab PO DAILY 04/09/22 11/14/24 History acetaminophen 500 mg tablet 500 mg PO Q6H PRN Pain 05/26/22 11/14/24 History amlodipine 5 mg tablet 5 mg PO DAILY 11/15/24 11/15/24 History ezetimibe 10 mg tablet 10 mg PO DAILY 11/15/24 11/15/24 History fluoxetine 40 mg capsule 40 mg PO DAILY 11/15/24 11/15/24 History lisinopril 20 mg tablet 20 mg PO DAILY 11/15/24 11/15/24 History metoprolol tartrate 25 mg tablet 25 mg PO DAILY 11/15/24 11/15/24 History omeprazole 40 mg capsule,delayed 40 mg PO DAILY 11/15/24 11/15/24 History release Allergies/Adverse Reactions Allergy/AdvReac Type Severity Reaction Status Date / Time atorvastatin (From Lipitor) Allergy Unknown Verified 11/15/24 08:25 codeine Allergy Unknown Verified 11/15/24 08:25 sulfamethoxazole (From Allergy Unknown Verified 11/15/24 08:25 Bactrim) trimethoprim (From Bactrim) Allergy Unknown Verified 11/15/24 08:25 Current Medications: Generic Name Dose Route Start Last Admin Trade Name Freq PRN Reason Stop Dose Admin Sodium Chloride 1,000 mls @ 30 mls/hr 11/15/24 08:30 11/15/24 08:43 Sodium Chloride 0.9% IV 11/16/24 08:29 30 mls/hr .Q24H STACI Administration Pertinent History/Comorbid Conditions* Medical History (Updated 05/26/24 @ 10:46 by OBINNA Petty) GERD (gastroesophageal reflux disease) Hiatal hernia Type 2 diabetes mellitus with insulin therapy CAD (coronary artery disease) Hyperlipidemia LDL goal <100 Type 2 diabetes mellitus with insulin therapy HTN (hypertension), benign Surgical History (Updated 03/26/23 @ 14:55 by OBINNA Petty) H/O neck surgery H/O: hysterectomy History of appendectomy Family History (Updated 02/29/20 @ 14:50 by OBINNA Petty) Father Mother CAD (coronary artery disease) Father Mother Social History Smoking and tobacco/nicotine status: never used tobacco/nicotine Alcohol intake: never Substance/Drug Use: never Adopted: No Lives independently: Yes Household members: spouse Housing: Manufactured/Mobile home Marital status: Pertinent Exam Findings alert, oriented x 3 and procedure specific exam findings Recommendations Risks and benefits of procedure reviewed Surgery/Procedure today Coding Level of Care Code Acute Code for Chg Latha
[2024-11-15] MEDS: lidocaine-epi 1% 20 mL INJ INJECTION (09:43)
--- NOTE | 2024-11-15 10:10 | XR_ITS ---
WS: [id number] Lumbar spine, C ARM fluoroscopy views, 11/15/2024 Clinical Data: or pic, decompression Comparison: Lumbar spine, 10/05/2024 Findings: Dr. Page performed a lumbar decompression XR/XR lumbar spine 1V [id number] Impression: Lumbar decompression.
--- NOTE | 2024-11-15 10:21 | P.OP_ITS ---
Operative Report Date of procedure: November 15, 2024 Pre-op diagnosis: Lumbar stenosis with neurogenic claudication Post-op diagnosis: same Post-op findings: 1. L3/4 laminectomy with partial facetectomy 2. L4/5 laminectomy with partial facetectomy Surgeon: Yuri Page DO Estimated blood loss (mL): 10 Procedure: 1. L3/4 laminectomy with partial facetectomy 2. L4/5 laminectomy with partial facetectomy Patient is brought to the operative suite. After undergoing anesthesia they are placed in the prone position. All areas of impingement are well padded. Patient is then prepped and draped in the normal sterile fashion. A skin incision is made over the L3/4 level. This is confirmed under c-arm guidance. A series of dilators are passed and the tubular retractor is docked on the L3 lamina. A bovie is used to clear the soft tissue off the lamina and the L 3/4 facet joint. A high speed maria e is then used to perform the laminectomy and take down the medial aspect of the L 3/4 facet joint. A kerrison rongeure was then used to take down the remaining lamina and smooth the edge of the laminectomy up to the point where the ligamentum flavum attaches. Attention was then brought to the medial aspect of the facet joint. The remaining medial aspect of the superior and inferior aspect of the facet joint were taken down with the kerrison from the pedicle of L3 to L 4. The facet joint had significant hypertrophy. Attention was then brought to the Ligamentum Flavum. The ligament was taken down from the lamina of L3 to L4 and out medially to the remaining facet joint. The ligament was thick. The dura was then exposed. The dura was in good repair. The L3 nerve was then traced with a curette out the L3/4 foramen and found to be adequately decompressed. The L4 nerve was traced with a curette around the L4 pedicle. The lateral recess was opened with a kerrison helping to further decompress the L4 nerve. Wound is then irrigated copiously with saline and surgiflo is used to stop any bleeding. The tubular retractor is removed A skin incision is made over the L4/5 level. This is confirmed under c-arm guidance. A series of dilators are passed and the tubular retractor is docked on the L4 lamina. A bovie is used to clear the soft tissue off the lamina and the L 4/5 facet joint. A high speed maria e is then used to perform the laminectomy and take down the medial aspect of the L 4/5 facet joint. A kerrison rongeure was then used to take down the remaining lamina and smooth the edge of the laminectomy up to the point where the ligamentum flavum attaches. Attention was then brought to the medial aspect of the facet joint. The remaining medial aspect of the superior and inferior aspect of the facet joint were taken down with the kerrison from the pedicle of L4 to L 5. The facet joint had significant hypertrophy. Attention was then brought to the Ligamentum Flavum. The ligament was taken down from the lamina of L4 to L5 and out medially to the remaining facet joint. The ligament was thick. The dura was then exposed. The dura was in good repai r. The L4 nerve was then traced with a curette out the L4/5 foramen and found to be adequately decompressed. The L5 nerve was traced with a curette around the L5 pedicle. The lateral recess was opened with a kerrison helping to further decompress the L5 nerve. Wound is then irrigated copiously with saline and surgiflo is used to stop any bleeding. The tubular retractor is removed and the wound is closed with vicryl and monocryl suture. Glue is then used to protect the wound. A sterile dressing is then placed. Patient was then placed in the supine position and transferred to the PACU in stable condition.
[2024-11-15] MEDS: HYDROcodone-acetaminophen 5-325 mg Tablet 1 TAB PO (11:10)
--- NOTE | 2024-11-15 11:30 | ANE.PACU2 ---
Inpatient post-anesthesia follow up: Airway intact: Yes Vital signs: Temperature 97.5 F Pulse Rate 76 Respiratory Rate 17 Blood Pressure 142/56 Pulse Oximetry 92 Oxygen Delivery Me thod Room Air Oxygen Flow Rate 8 Fraction of Inspir ed Oxygen Hydration adequate: Yes Nausea and vomiting: No Pain level: 1 Mental status: Baseline
== END 2024-11-15 11:31 | disposition home or self-care (01) ==
PROVIDERS: PCP Nurse Practitioner Family; Visit Provider Orthopaedic Surgery
PROC: (CPT 63005; principal; 2024-11-15 09:45)
DX: M48.062 Spinal stenosis, lumbar region with neurogenic claudication (principal); E11.9 Type 2 diabetes mellitus without complications; I25.10 Atherosclerotic heart disease of native coronary artery without angina pectoris; I10 Essential (primary) hypertension; K21.9 Gastro-esophageal reflux disease without esophagitis; Z79.82 Long term (current) use of aspirin; Z79.84 Long term (current) use of oral hypoglycemic drugs; Z79.4 Long term (current) use of insulin; Z79.899 Other long term (current) drug therapy; Z88.5 Allergy status to narcotic agent; Z88.2 Allergy status to sulfonamides; Z88.8 Allergy status to other drugs, medicaments and biological substances
CPT/HCPCS: 63047; 63048; 36416; 72020; 76000; 82962; J0131; J0690; J1100; J2405; J2704; J3010; J3490; J7030; J9999

== ENCOUNTER → 2024-11-23 11:08 | Outpatient (BNVA) | payer MEDICARE, OTHER, SELFPAY | PROVIDERS: PCP Nurse Practitioner Family; Visit Provider Nurse Practitioner Family | DX: N30.00 Acute cystitis without hematuria (principal) | CPT/HCPCS: 81000; 87086 ==

== ENCOUNTER → 2024-11-30 14:01 | Outpatient (BNVA) | payer MEDICARE, OTHER, SELFPAY | PROVIDERS: PCP Nurse Practitioner Family; Visit Provider Orthopaedic Surgery | DX: Z98.890 Other specified postprocedural states (principal) | CPT/HCPCS: 99024 ==

== ENCOUNTER → 2024-12-07 10:52 | Outpatient (BNVA) | payer MEDICARE, OTHER, SELFPAY | PROVIDERS: PCP Nurse Practitioner Family; Visit Provider Nurse Practitioner Family | DX: N39.0 Urinary tract infection, site not specified (principal) | CPT/HCPCS: 87086 ==

== ENCOUNTER → 2024-12-28 13:51 | Outpatient (BNVA) | payer MEDICARE, OTHER, SELFPAY | PROVIDERS: PCP Nurse Practitioner Family; Visit Provider Orthopaedic Surgery | DX: Z98.890 Other specified postprocedural states (principal) | CPT/HCPCS: 99024 ==

== ENCOUNTER → 2025-01-10 07:53 | Outpatient (BNVA) | payer MEDICARE, OTHER, SELFPAY | PROVIDERS: PCP Nurse Practitioner Family; Visit Provider Nurse Practitioner Family | DX: I10 Essential (primary) hypertension (principal); N39.0 Urinary tract infection, site not specified; R39.9 Unspecified symptoms and signs involving the genitourinary system; Z79.4 Long term (current) use of insulin; E11.9 Type 2 diabetes mellitus without complications | CPT/HCPCS: 80053; 80061; 81000; 83036; 84443; 87086 ==

== ENCOUNTER 2025-01-24 09:42 | Outpatient (CLI) | payer MEDICARE, OTHER, SELFPAY ==
--- NOTE | 2025-01-24 09:40 | MM_ITS ---
WS: [id number] BILATERAL 3D TOMOSYNTHESIS DIGITAL SCREENING MAMMOGRAPHY WITH CAD CLINICAL INFORMATION: SCREENING HISTORY: Screening mammogram. No current complaints. COMPARISON: 2023 TECHNIQUE: Bilateral CC and MLO views. FINDINGS: The breasts are composed of heterogeneous fibroglandular density tissue, which can limit the detection of small underlying mass lesions. No suspicious mass, asymmetry, calcifications, or architectural distortion. No evidence of malignancy. Dystrophic calcifications. Punctate and lucent centered calcifi cations. MM/MM [facility] tomosynthesis [id number] IMPRESSION: DENSITY: The breasts are heterogeneously dense, which may obscure small masses. BI-RADS: 2 - Benign FOLLOW UP: 1 Year Follow-up Recommend return to annual screening mammography.
== END 2025-01-24 09:43 | disposition home or self-care (01) ==
PROVIDERS: PCP Nurse Practitioner Family; Visit Provider Nurse Practitioner Family
DX: Z12.31 Encounter for screening mammogram for malignant neoplasm of breast (principal); R39.9 Unspecified symptoms and signs involving the genitourinary system; R92.333 Mammographic heterogeneous density, bilateral breasts
CPT/HCPCS: 77063; 77067; 87086

== ENCOUNTER → 2025-02-08 13:49 | Outpatient (BNVA) | payer MEDICARE, OTHER, SELFPAY | PROVIDERS: PCP Nurse Practitioner Family; Visit Provider Orthopaedic Surgery | DX: Z98.890 Other specified postprocedural states (principal) | CPT/HCPCS: 99024 ==

== ENCOUNTER → 2025-03-01 10:41 | Outpatient (BNVA) | payer MEDICARE, OTHER, SELFPAY | PROVIDERS: PCP Nurse Practitioner Family; Visit Provider Nurse Practitioner Family | DX: N39.0 Urinary tract infection, site not specified (principal); N28.9 Disorder of kidney and ureter, unspecified | CPT/HCPCS: 81000; 87086 ==

== ENCOUNTER → 2025-03-20 10:15 | Outpatient (BNVA) | payer MEDICARE, OTHER, SELFPAY | PROVIDERS: PCP Nurse Practitioner Family; Visit Provider Nurse Practitioner Family | DX: N39.0 Urinary tract infection, site not specified (principal); N28.9 Disorder of kidney and ureter, unspecified | CPT/HCPCS: 81000; 87086 ==

== ENCOUNTER → 2025-05-24 08:53 | Outpatient (BNVA) | payer MEDICARE, OTHER, SELFPAY | PROVIDERS: PCP Nurse Practitioner Family; Visit Provider Nurse Practitioner Family | DX: Z79.4 Long term (current) use of insulin (principal); E11.9 Type 2 diabetes mellitus without complications | CPT/HCPCS: 83036 ==

== ENCOUNTER → 2025-06-21 10:33 | Outpatient (BNVA) | payer MEDICARE, OTHER, SELFPAY | PROVIDERS: PCP Nurse Practitioner Family; Visit Provider Nurse Practitioner Family | DX: N39.0 Urinary tract infection, site not specified (principal); N28.9 Disorder of kidney and ureter, unspecified | CPT/HCPCS: 81000; 87086 ==

== ENCOUNTER → 2025-07-04 11:19 | Outpatient (BNVA) | payer MEDICARE, OTHER, SELFPAY | PROVIDERS: PCP Nurse Practitioner Family; Visit Provider Nurse Practitioner Family | DX: E11.9 Type 2 diabetes mellitus without complications (principal); I10 Essential (primary) hypertension | CPT/HCPCS: 80053; 80061; 82043; 83036 ==